=== PATIENT | male | born 1945 | race African-American/Black ===

== ENCOUNTER 2016-10-11 21:21 | Inpatient (IN) | payer MEDICARE, OTHER ==
[2016-10-11] MEDS ORDERED: ONDANSETRON 4 MG/2 ML VIAL IVP STA (23:38)
[2016-10-11] MEDS ORDERED: HYDROmorphone 1 MG/ML 1 ML SYRINGE IVP STA (23:38)
[2016-10-11] MEDS ORDERED: SODIUM CHLORIDE 0.9% 500 ML IV STA (23:38)
[2016-10-11] MEDS ORDERED: SODIUM CHLORIDE 0.9% 1,000 ML IV STA (23:38)
[2016-10-11] MEDS ORDERED: FAMOTIDINE 20 MG/2 ML VIAL IV STA (23:39)
--- NOTE | 2016-10-11 23:41 | ED ---
General Adult HPI - General Chief complaint: Abdominal Pain Stated complaint: abd pain Time Seen by Provider: 10/11/16 23:25 Source: patient, family, RN notes reviewed Mode of arrival: ambulatory Limitations: no limitations - History of Present Illness Initial comments: Patient is a pleasant 71-year-old male presenting to the emergency department complaining of abdominal discomfort. Patient has a known history of liver cancer. Liver lesion has shrunk as of last CAT scan, 1 month ago. Patient started having increased discomfort the past couple of days. Patient has associated nausea and vomiting. No fevers. No constipation or diarrhea. - Related Data Home Medications Medication Instructions Recorded Confirmed Albuterol Sulfate [Proair Hfa] 1 - 2 puff INHALATION RT-Q6H PRN 10/05/15 HYDROcodone/APAP 10-325MG [[place] 1 tab PO Q6H PRN 10/05/15 10/11/16 10-325] Mometasone Furoate [Nasonex Nasal 1 - 2 spray EA NOSTRIL DAILY 10/05/15 10/11/16 [place]] ALPRAZolam [Xanax] 2 mg PO TID PRN 09/17/16 10/11/16 Loratadine [Claritin] 10 mg PO DAILY 09/17/16 10/11/16 Omeprazole 40 mg PO DAILY 09/17/16 10/11/16 Allergies Allergy/AdvReac Type Severity Reaction Status Date / Time No Known Allergies Allergy Verified 10/11/16 22:57 Review of Systems ROS Statement: Those systems with pertinent positive or pertinent negative responses have been documented in the HPI. ROS Other: All systems not noted in ROS Statement are negative. Constitutional: Denies: fever Eyes: Denies: eye pain ENT: Denies: ear pain Respiratory: Denies: cough Cardiovascular: Denies: chest pain Endocrine: Reports: fatigue Gastrointestinal: Reports: abdominal pain, nausea, vomiting Genitourinary: Denies: dysuria Musculoskeletal: Denies: back pain Skin: Denies: rash Neurological: Denies: weakness Past Medical History Past Medical History: Asthma, Cancer, Prostate Disorder Additional Past Medical History / Comment(s): Prostate CA 2015, Hernia, liver mass, hepatitis C History of Any Multi-Drug Resistant Organisms: None Reported Past Surgical History: Hernia Repair Additional Past Surgical History / Comment(s): bilateral hernia repair, metal codi, pins and plate in left leg. Past Anesthesia/Blood Transfusion Reactions: No Reported Reaction Past Psychological History: Anxiety Smoking Status: Current some day smoker Past Alcohol Use History: Occasional Past Drug Use History: None Reported - Past Family History Father History Unknown: Yes General Exam Limitations: no limitations General appearance: alert, in no apparent distress Head exam: Present: atraumatic Eye exam: Present: normal appearance, PERRL ENT exam: Present: normal oropharynx Neck exam: Present: normal inspection Respiratory exam: Present: normal lung sounds bilaterally Cardiovascular Exam: Present: regular rate, normal rhythm GI/Abdominal exam: Present: soft, tenderness (Moderate tenderness right upper quadrant. Mild tenderness right lower quadrant.), normal bowel sounds, organomegaly (Mild hepatomegaly). Absent: distended, guarding, rebound, rigid, pulsatile mass Extremities exam: Present: normal inspection Neurological exam: Present: alert Psychiatric exam: Present: normal affect, normal mood Skin exam: Absent: rash Course Vital Signs 10/11/16 10/12/16 21:31 01:05 Temperature 98.4 F Pulse Rate 89 65 Respiratory 18 16 Rate Blood Pressure 108/62 125/71 O2 Sat by Pulse 98 95 Oximetry - Reevaluation(s) Reevaluation #1: 10/12/16 01:35 Patient reexamined and improved. Patient was updated on results and plan. Case was discussed in detail with Dr. Champion who recommends medicine admission with surgery consult. He will also consult. Dr. Sinha has been paged Medical Decision Making - Medical Decision Making Case was discussed with Dr. Sinha, who will admit for Dr. Tobar. - Lab Data Result diagrams: 10/11/16 23:20 10/11/16 23:20 Lab Results 10/11/16 10/11/16 10/11/16 Range/Units 23:20 23:20 23:20 WBC 6.6 (3.8-10.6) k/uL RBC 5.14 (4.30-5.90) m/uL Hgb 15.5 (13.0-17.5) gm/dL Hct 47.3 (39.0-53.0) % MCV 92.1 (80.0-100.0) fL MCH 30.2 (25.0-35.0) pg MCHC 32.8 (31.0-37.0) g/dL RDW 12.7 (11.5-15.5) % Plt Count 165 (150-450) k/uL Neutrophils % 83 % Lymphocytes % 6 % Monocytes % 7 % Eosinophils % 2 % Basophils % 2 % Neutrophils # 5.5 (1.3-7.7) k/uL Lymphocytes # 0.4 L (1.0-4.8) k/uL Monocytes # 0.4 (0-1.0) k/uL Eosinophils # 0.1 (0-0.7) k/uL Basophils # 0.1 (0-0.2) k/uL PT 11.2 (9.0-12.0) sec INR 1.1 (<1.1) APTT 26.0 (22.0-30.0) sec Sodium 141 (137-145) mmol/L Potassium 3.6 (3.5-5.1) mmol/L Chloride 95 L (98-107) mmol/L Carbon Dioxide 34 H (22-30) mmol/L Anion Gap 12 mmol/L BUN 14 (9-20) mg/dL Creatinine 1.00 (0.66-1.25) mg/dL Est GFR (MDRD) Af Amer >60 (>60 ml/min/1.73 sqM) Est GFR (MDRD) Non-Af >60 (>60 ml/min/1.73 sqM) Glucose 116 H (74-99) mg/dL Calcium 9.9 (8.4-10.2) mg/dL Total Bilirubin 0.8 (0.2-1.3) mg/dL AST 45 (17-59) U/L ALT 59 (21-72) U/L Alkaline Phosphatase 132 H (38-126) U/L Total Protein 7.6 (6.3-8.2) g/dL Albumin 4.2 (3.5-5.0) g/dL Amylase 51 (30-110) U/L Lipase 58 (23-300) U/L - Radiology Data Radiology results: report reviewed (Ultrasounds shows sludge in the gallbladder , thickened wall, periCholecystic fluid.) Disposition Clinical Impression: Acute cholecystitis Disposition: ADMITTED IP TO THIS HOSP
[2016-10-12 00:05] LABS: Basophils # (A) 0.1 k/uL (0-0.2); Basophils % (A) 2 %; CH 31.3; CHCM 34.1; Eosinophils # (A) 0.1 k/uL (0-0.7); Eosinophils % (A) 2 %; HCT 47.3 % (39.0-53.0); HGB 15.5 gm/dL (13.0-17.5); Luc # (Auto) 0.06; Luc % (Auto) 1; Lymphocytes # (A) 0.4 k/uL (1.0-4.8); Lymphocytes % (A) 6 %; MCH 30.2 pg (25.0-35.0); MCHC 32.8 g/dL (31.0-37.0); MCV 92.1 fL (80.0-100.0); Mean Platelet Volume 9.6; Monocytes # (A) 0.4 k/uL (0-1.0); Monocytes % (A) 7 %; Neutrophils # (A) 5.5 k/uL (1.3-7.7); Neutrophils % (A) 83 %; RBC 5.14 m/uL (4.30-5.90); RDW 12.7 % (11.5-15.5); WBC 6.6 k/uL (3.8-10.6); WBC (Perox) 6.38
[2016-10-12 00:14] LABS: INR 1.1 (<1.1); Prothrombin Time 11.2 sec (9.0-12.0)
[2016-10-12 00:17] LABS: ALT 59 U/L (21-72); AST 45 U/L (17-59); Alkaline Phosphatase 132 U/L (38-126); Amylase 51 U/L (30-110); Anion Gap 12 mmol/L; Blood Urea Nitrogen 14 mg/dL (9-20); Calcium 9.9 mg/dL (8.4-10.2); Carbon Dioxide 34 mmol/L (22-30); Chloride 95 mmol/L (98-107); Glucose 116 mg/dL (74-99); Non-African American GFR(MDRD) >60 (>60 ml/min/1.73 sqM); Potassium 3.6 mmol/L (3.5-5.1); Sodium 141 mmol/L (137-145); Total Bilirubin 0.8 mg/dL (0.2-1.3); Total Protein 7.6 g/dL (6.3-8.2)
--- NOTE | 2016-10-12 01:03 | US ---
EXAMINATION TYPE: US gallbladder DATE OF EXAM: 10/12/2016 12:45 AM COMPARISON: on PACS CLINICAL HISTORY: increase abdominal gas post eating, had prostate cancer, hx of liver lesions. EXAM MEASUREMENTS: Liver Length: 15.6 cm Gallbladder Wall: 0.4 cm CBD: 0.3 cm Right Kidney: 10.6 x 5.3 x 5.7 cm TECHNOLOGIST IMPRESSION: Pancreas: Obscured by bowel gas Liver: enlarged caudate lobe. heterogenous. Liver lesions. 1- left lobe, cluster of cysts= 1.5 x 1. 6 x 1.8 cm. 2- right lobe, posterior, cystic lesion= 2.4 x 2.3 x 1.9 cm Gallbladder: sludge, thickened wall. Calcifications seen attached to wall. Small amount of periflu id. Evidence for sonographic Terrazas's sign: neg CHD: wnl Right Kidney: wnl IMPRESSION: Gallbladder is enlarged with thickened wall consistent with cholecystitis. There are a fe w adherent gallstones. No dilated ducts. Dilated gallbladder appears new compared to CT scan of 09/17. There are hepatic cysts noted in the left lobe. Normal Values: Liver Length: < 16cm wnl, 17-18cm upper limits, >18cm enlarged Renal Length = 9 - 12cm GB Wall: < 0.3cm CBD: < 0.6cm or < 1.0cm post cholecystectomy
--- NOTE | 2016-10-12 01:05 | XR ---
EXAMINATION TYPE: XR KUB DATE OF EXAM: 10/12/2016 12:54 AM COMPARISON: 09/17/2016 HISTORY: Abdominal pain TECHNIQUE: 2 views FINDINGS: There is no sign of intestinal obstruction or pneumoperitoneum. Fecal pattern is normal. Caitlin ng bases are clear of consolidation. There are no pathologic calcifications over the kidneys. IMPRESSION: Nonacute abdomen. No change.
[2016-10-12] MEDS ORDERED: AMPICILLIN-SULBACTAM 3 GM in SODIUM CHLORIDE 0.9% 100 ML IVPB STA (01:32)
[2016-10-12] MEDS ORDERED: NALOXONE 0.4 MG/ML 1 ML VIAL IV PRN (01:33)
[2016-10-12] MEDS ORDERED: ONDANSETRON 4 MG/2 ML VIAL IVP PRN (01:33)
[2016-10-12] MEDS: SODIUM CHLORIDE 0.9% 1,000 ML IV SCH ×3 (02:42→20:09)
[2016-10-12 03:23] LABS: Amorphous Sediment,Urine Rare /hpf; Appearance,Urine Cloudy (Clear); Bacteria,Urine Occasional /hpf; Bilirubin,Urine Negative (Negative); Glucose,Urine (UA) Negative (Negative); Ketones,Urine Trace (Negative); Leukocyte Esterase,Urine Negative (Negative); Mucus,Urine Rare /hpf; Nitrite,Urine Negative (Negative); PH, Urine 8.5 (5.0-8.0); Particle Count 7699; Protein,Urine Trace (Negative); RBC,Urine 2 /hpf (0-5); Specific Gravity,Urine 1.014 (1.001-1.035); UA Billing (MACRO vs. MICRO) MICRO; Urobilinogen,Urine <2.0 mg/dL (<2.0)
[2016-10-12] MEDS: HYDROmorphone 1 MG/ML 1 ML SYRINGE IV PRN ×3 (06:54→23:31)
[2016-10-12] MEDS: PANTOPRAZOLE 40 MG/10 ML VIAL IV SCH (08:34)
[2016-10-12] MEDS: AMPICILLIN-SULBACTAM 1.5 GM in SODIUM CHLORIDE 0.9% 50 ML IVPB SCH ×4 (08:34→23:29)
[2016-10-12] MEDS ORDERED: ALPRAZolam 0.5 MG TAB PO PRN (11:20)
[2016-10-12] MEDS ORDERED: ALBUTEROL NEBULIZED 2.5 MG/3 ML INHALATION PRN (11:30)
--- NOTE | 2016-10-12 12:37 | P.CONS ---
History of Present Illness - Reason for Consult Consult date: 10/12/16 Oncology care Requesting physician: Víctor Duffy - Chief Complaint abdominal pain - History of Present Illness Mr. Garcia is a very pleasant patient who was initially seen by Dr. Champion in Oct 2015. Pt presented with mild RUQ abdominal discomfort and had a CT scan of abdomen on 08/20/2015 which revealed 12.2 x 8.9 cm liver mass with normal LFTs, other then a slightly elevated alkaline phosphatase, hepatitis C antibodies were positive, AFP was 72745. MRI on 09/22/2015 revealed hetergeneous 12 cm mass centrally within the liver. He had a liver biopsy on 10/14/2015 which was positive for hepatocellular carcinoma. He was seen by Dr. Rosales and felt not to be a surgical candidate but intra-arterial therapy was recommended. On 10/28/2015 he had MAA administration to right hepatic artery. He was then seen at [facility] in November 2015 for a second opinion, recommendation was to start nexavar. He had another MAA administration in 2015 He started the nexavar on 12/08/2015 but this was discontinued on 12/18/2015 because of severe plantar/palmar erythrodesia. On 01/04/2016 AFP was 1193 and repeat liver MRI on 01/27/2016 revealed decrease in the size of liver mass. Serial AFP were: 02/02/2016-632.4, 03/08/2016-356.6. We attempted to resume nexavar on 03/07/2016 at reduced dose of 200mg BID after his symptoms resolved but skin toxicities rapidly recurred, this was permanently discontinued on . Serial AFP since: 04/11/2016-307.3, 04/29/16-127, 08/11/16-203. 2015 MRI showed improvement in his liver lesion. 08/11/2016 MRI revealed cirrhotic liver, stable central lesion, satellite lesion slightly larger. He was evaluated at [place] and it was decided to watch for now and repeat MRI in November 2016. Pt has had progressive GI distress over the last month including early satiety, some vomiting, RUQ and right side discomfort with increase gas and abd bloating after eating as well as severe constipation. He denied fever, dysphagia, black , bloody, mucoid or changes in color of stool, jaundice, itching or swelling. Review of Systems All systems: negative Constitutional: Reports as per HPI Past Medical History Past Medical History: Asthma, Cancer, Prostate Disorder Additional Past Medical History / Comment(s): Prostate CA 2015, Hernia, hepatitis C, HCC History of Any Multi-Drug Resistant Organisms: None Reported Past Surgical History: Hernia Repair Additional Past Surgical History / Comment(s): bilateral hernia repair, metal codi, pins and plate in left leg. Chemo-embolization of the liver x 2 Past Anesthesia/Blood Transfusion Reactions: No Reported Reaction Past Psychological History: Anxiety Smoking Status: Current some day smoker Past Alcohol Use History: Occasional Past Drug Use History: None Reported - Past Family History Father History Unknown: Yes Medications and Allergies Home Medications Medication Instructions Recorded Confirmed Type Albuterol Sulfate [Proair Hfa] 1 - 2 puff INHALATION RT-Q6H PRN 10/05/15 History HYDROcodone/APAP 10-325MG [[place] 1 tab PO Q6H PRN 10/05/15 10/11/16 History 10-325] Mometasone Furoate [Nasonex Nasal 1 - 2 spray EA NOSTRIL DAILY 10/05/15 History [place]] ALPRAZolam [Xanax] 2 mg PO TID PRN 09/17/16 10/11/16 History Loratadine [Claritin] 10 mg PO DAILY 09/17/16 10/11/16 History Omeprazole 40 mg PO DAILY 09/17/16 10/11/16 History Allergies Allergy/AdvReac Type Severity Reaction Status Date / Time No Known Allergies Allergy Verified 10/11/16 22:57 Physical Exam Vitals: Vital Signs Temp Pulse Pulse Pulse Resp BP BP 10/12/16 11:18 97.3 F L 58 L 14 102/69 10/12/16 08:00 63 16 10/12/16 07:00 97.3 F L 58 L 14 102/69 10/12/16 02:33 98.6 F 63 16 10/12/16 02:20 74 16 121/73 Pulse Ox 10/12/16 11:18 95 10/12/16 08:00 10/12/16 07:00 95 10/12/16 02:33 95 10/12/16 02:20 95 Intake and Output 10/11/16 10/12/16 10/12/16 22:59 06:59 14:59 Output Total 200 Balance -200 Output: Urine 200 Other: Voiding Method Toilet Toilet - Constitutional General appearance: average body habitus, no acute distress - EENT Eyes: anicteric sclerae, normal appearance ENT: hearing grossly normal, normal oropharynx - Neck Neck: no lymphadenopathy - Respiratory Respiratory: bilateral: CTA - Cardiovascular Rhythm: regular Heart sounds: normal: S1, S2 leg Peripheral Edema: bilateral: None - Gastrointestinal General gastrointestinal: soft, ventral hernia Localized gastrointestinal: tender: RUQ (mild), rebound: RUQ, LUQ, RLQ, LLQ, epigastric periumbilical, suprabubic, midline - Integumentary Integumentary: normal - Neurologic Neurologic: CNII-XII intact, focal deficits - Musculoskeletal Musculoskeletal: strength equal bilaterally - Psychiatric Psychiatric: A&O x's 3, appropriate affect, intact judgment & insight Results CBC & Chem 7: 10/11/16 23:20 10/11/16 23:20 Labs: Abnormal Lab Results - Last 24 Hours (Table) 10/12/16 Range/Units 03:00 Urine pH 8.5 H (5.0-8.0) Urine Protein Trace H (Negative) Urine Ketones Trace H (Negative) Amorphous Sediment Rare H (None) /hpf Urine Bacteria Occasional H (None) /hpf Urine Mucus Rare H (None) /hpf Abdominal x-ray: report reviewed US - abdomen: report reviewed Assessment and Plan (1) Hepatocellular carcinoma Narrative/Plan: Pt is not currently on any active treatment, his last scan in Aug showed stable disease, he is due for imaging again in November. Pt is ok from an Oncology standpoint to have surgical procedures if necessary. No labs at this time. Status: Chronic (2) History of prostate cancer Narrative/Plan: Remote history. No further work up at this time. Status: Chronic
--- NOTE | 2016-10-12 13:26 | P.GSCN ---
History of Present Illness Consult date: 10/12/16 Reason for Consult: Cholecystitis History of present illness: Patient was hospitalized because of abdominal pain. The abdominal pain is in the right upper abdomen as well as the infraumbilical location. It is gassy at times. Appetite slightly diminished. No nausea or vomiting. Some constipation at times. Some radiation to his back. Denies fevers or chills. He has a complex history of hepatitis C and hepatocellular cancer. He has undergone transhepatic therapy for his malignancy with good results thus far. He had a CAT scan about a month ago. An ultrasound was done when he came in with the above complaints. The ultrasound shows a thickened gallbladder wall with gallstones. He was tender to the physicians that were evaluating him in the right upper abdomen. Coags are normal. Alkaline phosphatase slightly elevated although the remainder of his labs are normal. Platelets are normal. Review of Systems The patient denies any acute changes in his vision or hearing, no dysphagia or odynophagia, no chest pain or shortness of breath, no dysuria or hematuria, no headache, no runny nose, no rectal bleeding or melena, no unexplained weight loss All systems: negative Past Medical History Past Medical History: Asthma, Cancer, Prostate Disorder Additional Past Medical History / Comment(s): Prostate CA 2015, Hernia, hepatitis C, HCC History of Any Multi-Drug Resistant Organisms: None Reported Past Surgical History: Hernia Repair Additional Past Surgical History / Comment(s): bilateral hernia repair, metal codi, pins and plate in left leg. Chemo-embolization of the liver x 2 Past Anesthesia/Blood Transfusion Reactions: No Reported Reaction Past Psychological History: Anxiety Smoking Status: Current some day smoker Past Alcohol Use History: Occasional Past Drug Use History: None Reported - Past Family History Father History Unknown: Yes Medications and Allergies Home Medications Medication Instructions Recorded Confirmed Type Albuterol Sulfate [Proair Hfa] 1 - 2 puff INHALATION RT-Q6H PRN 10/05/15 History HYDROcodone/APAP 10-325MG [[place] 1 tab PO Q6H PRN 10/05/15 10/11/16 History 10-325] Mometasone Furoate [Nasonex Nasal 1 - 2 spray EA NOSTRIL DAILY 10/05/15 History [place]] ALPRAZolam [Xanax] 2 mg PO TID PRN 09/17/16 10/11/16 History Loratadine [Claritin] 10 mg PO DAILY 09/17/16 10/11/16 History Omeprazole 40 mg PO DAILY 09/17/16 10/11/16 History Allergies Allergy/AdvReac Type Severity Reaction Status Date / Time No Known Allergies Allergy Verified 10/11/16 22:57 Surgical - Exam Vital Signs Temp Pulse Resp BP Pulse Ox 98.4 F 89 18 108/62 98 10/11/16 21:31 10/11/16 21:31 10/11/16 21:31 10/11/16 21:31 10/11/16 21:31 Physical exam: General: Well-developed, well-nourished HEENT: Normocephalic, sclerae nonicteric Abdomen: Right upper quadrant tenderness, no palpable mass, nondistended Extremities: No edema Neuro: Alert and oriented Results - Labs 10/11/16 23:20 10/11/16 23:20 Abnormal Lab Results - Last 24 Hours (Table) 10/12/16 Range/Units 03:00 Urine pH 8.5 H (5.0-8.0) Urine Protein Trace H (Negative) Urine Ketones Trace H (Negative) Amorphous Sediment Rare H (None) /hpf Urine Bacteria Occasional H (None) /hpf Urine Mucus Rare H (None) /hpf Assessment and Plan (1) Acute cholecystitis Narrative/Plan: The patient's exam and ultrasound findings suggest the presence of acute cholecystitis. The patient I discussed the options in detail. Included in those options are outpatient evaluation by his hepatic team at [facility]. The patient and I have chosen to proceed with laparoscopic cholecystectomy at this time. The additional risks as it pertains to his prior history was discussed in detail. The risks to the patient include bleeding, infection, biliary leakage, bile duct injury, retained common bile duct stone, conversion to an open procedure, postoperative diarrhea, persistent abdominal pain in the postoperative setting. The patient understands and wishes to proceed. Status: Acute
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
[2016-10-12] MEDS ORDERED: IV FLUID CONTINUATION 1,000 ML IV ONE (15:24)
[2016-10-12] MEDS ORDERED: ONDANSETRON 4 MG/2 ML VIAL IVP ONE (15:50)
[2016-10-12] MEDS ORDERED: DEXAMETHASONE SOD PHOSPHATE 10 MG/ML 1 ML VIAL IV ONE (15:51)
[2016-10-12] MEDS ORDERED: GLYCOPYRROLATE 0.2 MG/ML 2 ML VIAL ONE (15:59)
[2016-10-12] MEDS ORDERED: ROCURONIUM BROMIDE 10 MG/ML 10 ML VIAL IV ONE (15:59)
[2016-10-12] MEDS ORDERED: MIDAZOLAM 2 MG/2 ML VIAL ONE (15:59)
[2016-10-12] MEDS ORDERED: LIDOCAINE 1% INJ 10MG/ML (20 ML MDV) ONE (15:59)
[2016-10-12] MEDS ORDERED: HEPARIN SODIUM,PORCINE 5,000 UNIT/ML 1 ML VIAL ONE (15:59)
[2016-10-12] MEDS ORDERED: SUCCINYLCHOLINE CHLORIDE 100 MG/5 ML SYR IV ONE (15:59)
[2016-10-12] MEDS ORDERED: PHENYLEPHRINE-0.9% NACL SYG 1 MG/10 ML SYRINGE ONE (15:59)
[2016-10-12] MEDS ORDERED: PROPOFOL 10 MG/ML 20 ML VIAL IV ONE (15:59)
[2016-10-12] MEDS ORDERED: NEOSTIGMINE 1 MG/ML 10 ML VIAL ONE (15:59)
[2016-10-12] MEDS ORDERED: fentaNYL (PF) 50 MCG/ML 2 ML AMP ONE (15:59)
[2016-10-12] MEDS ORDERED: BUPIVACAIN-EPI 0.25%-1:200,000 30 ML VIAL SQ ONE (16:28)
[2016-10-12] MEDS ORDERED: LACTATED RINGERS 1,000 ML IV ONE (17:45)
[2016-10-12] MEDS ORDERED: MEPERIDINE 50 MG/ML SYRINGE IVP ONE (18:17)
--- NOTE | 2016-10-12 18:49 | P.PCN ---
Date of Procedure: 10/12/16 Procedure(s) Performed: PREOPERATIVE DIAGNOSIS: Acute cholecystitis POSTOPERATIVE DIAGNOSIS: Same PROCEDURE: Laparoscopic cholecystectomy SURGEON: Ernesto EBL: Minimal see anesthesia record ANESTHESIA: Gen. COMPLICATIONS: None OPERATIVE PROCEDURE: The patient was brought and placed on the operating room table in the supine position. The patient was placed under general anesthesia at that time. The abdomen was prepped and draped in the usual sterile fashion. A small vertical infraumbilical incision was made. The fascia was grasped with the Yamini forceps. The fascia was retracted anteriorly. The Veress needle was advanced into the peritoneal cavity. The saline drop test was normal. Insufflation took place up to 15 mmHg. A 5 mm optical trocar was advanced and the peritoneal cavity. 2 additional 5 mm trochars were placed in the right upper quadrant under direct visualization. A 10 mm trocar was advanced into the epigastric incision site. This was later switched to a 12 mm trocar. The patient's liver was inspected and had a macronodular appearance. This was quite diseased appearing. The gallbladder was distended and had omental fat that was adherent to this. The intra-abdominal fat was also adherent to the liver margin. Using the Harmonic scalpel I dissected some of this fatty tissue away from the gallbladder. A small opening was made in the fundus and bilious fluid was evacuated. Dissection of the gallbladder then took place bluntly. As I approached the infundibulum the patient had a prominent sweep of the hepatic artery. This was extremely inflamed in this region possibly on the basis of recent transhepatic chemotherapy. I was able to finally bluntly dissect away the hepatic artery from the infundibulum. The cystic artery was identified. This was divided using a clipper. I then bluntly dissected further on the infundibulum until this narrowed down. The degree of inflammation however remained quite impressive. I decided to ligate the distal infundibulum using a 2-0 Ethibond stitch and avoid any further dissection into the avel hepatis. The 2 Ethibond stitch was tied down using the time of device. An additional 12 mm clip was placed on the patient's side. The infundibulum was then divided using scissors. The lumen of the infundibulum that location was extremely small and inflamed. I then dissected the infundibulum away from the liver using a combination of electrocautery and the Harmonic scalpel. Small vessels were ligated using the clipper. The gallbladder was removed from the epigastric trocar site with an Endo Catch bag. I placed a drain in the gallbladder fossa exiting through the most lateral 5 mm trocar site. This was sutured in place using a 3-0 silk stitch. The gallbladder fossa was irrigated with saline. There was no evidence of any bleeding or biliary drainage seen. The trochars were then removed. The fascia at the 12 millimeter site was closed using a [id number] 0 Vicryl stitch. The skin at all 3 sites was closed using a 4-0 Monocryl stitch. At the end of this procedure the sponge and needle counts were correct. DISPOSITION: Stable to the recovery room
[2016-10-13] MEDS: HYDROmorphone 1 MG/ML 1 ML SYRINGE IV PRN ×3 (03:35→21:20)
[2016-10-13] MEDS: SODIUM CHLORIDE 0.9% 1,000 ML IV SCH ×3 (05:23→21:17)
[2016-10-13] MEDS: AMPICILLIN-SULBACTAM 1.5 GM in SODIUM CHLORIDE 0.9% 50 ML IVPB SCH ×4 (05:24→23:29)
[2016-10-13 07:18] LABS: Basophils % (A) 0 %; CH 30.9; CHCM 32.6; Eosinophils # (A) 0.1 k/uL (0-0.7); Eosinophils % (A) 1 %; HCT 49.9 % (39.0-53.0); HDW 2.29; Luc # (Auto) 0.13; Luc % (Auto) 2; Lymphocytes # (A) 0.5 k/uL (1.0-4.8); Lymphocytes % (A) 8 %; MCH 30.5 pg (25.0-35.0); MCV 95.1 fL (80.0-100.0); Mean Platelet Volume 8.7; Monocytes # (A) 0.3 k/uL (0-1.0); Monocytes % (A) 5 %; Neutrophils # (A) 5.5 k/uL (1.3-7.7); Neutrophils % (A) 84 %; RBC 5.25 m/uL (4.30-5.90); RDW 12.5 % (11.5-15.5); WBC 6.5 k/uL (3.8-10.6); WBC (Perox) 6.73
[2016-10-13 07:46] LABS: ALT 54 U/L (21-72); AST 45 U/L (17-59); Alkaline Phosphatase 98 U/L (38-126); Anion Gap 10 mmol/L; Blood Urea Nitrogen 8 mg/dL (9-20); Calcium 9.4 mg/dL (8.4-10.2); Carbon Dioxide 30 mmol/L (22-30); Chloride 102 mmol/L (98-107); Glucose 101 mg/dL (74-99); Non-African American GFR(MDRD) >60 (>60 ml/min/1.73 sqM); Potassium 4.8 mmol/L (3.5-5.1); Sodium 142 mmol/L (137-145); Total Bilirubin 0.8 mg/dL (0.2-1.3); Total Protein 6.8 g/dL (6.3-8.2)
[2016-10-13] MEDS: PANTOPRAZOLE 40 MG/10 ML VIAL IV SCH (08:10)
[2016-10-13] MEDS: FLUTICASONE 50MCG/SPRAY NASAL 16GM EA NOSTRIL SCH (08:10)
[2016-10-13] MEDS: HYDROcodone/APAP 10-325MG 1 EACH TAB PO PRN ×2 (13:21→18:23)
--- NOTE | 2016-10-13 16:22 | P.PN ---
Subjective This is a 71-year-old patient of Dr. Tobar with a past medical history of prostate cancer many years ago, liver cancer under the care of Dr. Mendez diagnosed in 2014, cirrhosis of the liver, hepatitis C. Patient has had complaints of abdominal pain for greater than one month. He has had heartburn with bloating especially when he eats with a couple episodes of vomiting. He states he did come into the hospital one month ago for these complaints and was diagnosed with ileus and was discharged home. He underwent a CAT scan of the abdomen and pelvis with contrast at that time which revealed large multifocal lesion within the liver undoubtably representing latency. Mildly dilated gas- filled large and small bowel throughout the abdomen likely reflex generalized ileus. Degenerative changes within the spine. He returned to the emergency center on October 11 with the same complaints. Ultrasound of the abdomen showed gallbladder enlarged with thickened wall consistent with cholecystitis. There are a few adherent gallstones. No dilated ducts. Dilated gallbladder appears new compared to CAT scan of September 17. Alkaline phosphatase 132. KUB of the abdomen showed non-acute abdomen. Patient was admitted to the surgical unit with diagnosis of acute cholecystitis. Consults requested with Dr. Orozco and Dr. Bejarano. 10/13: Patient is status post laparoscopic cholecystectomy done on October [address] Orozco. Patient is complaining of pain not controlled and would like to stay until the morning. Patient will be discharged tomorrow in the morning. Objective - Vital Signs Vital signs: Vital Signs Temp 97.0 F L 10/13/16 01:24 Pulse 59 L 10/13/16 01:24 Resp 16 10/13/16 01:24 BP 115/76 10/13/16 01:24 Pulse Ox 95 10/13/16 01:24 Intake & Output 10/12/16 10/13/16 10/13/16 18:59 06:59 18:59 Intake Total 1870 600 Output Total 5 80 Balance 1865 -80 600 Intake: IV 1100 Intake, IV Titration 770 Amount Sodium Chloride 0.9% 1, 770 000 ml @ 110 mls/hr IV . Q9H6M [facility] Rx#:[id number] Oral 600 Output: Drainage 80 Right Lower Abdomen 80 Estimated Blood Loss 5 Other: Voiding Method Toilet Toilet # Voids 1 - Exam Gen: This is a 8-year-old -[place] gentleman. He appears to be in no acute distress. HEENT: Head is atraumatic, normocephalic. Pupils equal, round. Sclerae is anicteric. NECK: Supple. No JVD. No lymphadenopathy. No thyromegaly. LUNGS: Clear to auscultation. No wheezes or rhonchi. No intercostal retractions. HEART: Regular rate and rhythm. No murmur. ABDOMEN: Soft. Bowel sounds are present. No masses. Mild right upper quadrant tenderness. Midline ventral hernia noted. EXTREMITIES: No pedal edema. No calf tenderness. NEUROLOGICAL: Patient is awake, alert and oriented x3. Cranial nerves 2 through 12 are grossly intact. - Labs CBC & Chem 7: 10/13/16 06:50 10/13/16 06:50 Labs: Abnormal Lab Results - Last 24 Hours (Table) 10/13/16 10/13/16 Range/Units 06:50 06:50 Lymphocytes # 0.5 L (1.0-4.8) k/uL BUN 8 L (9-20) mg/dL Glucose 101 H (74-99) mg/dL Assessment and Plan Plan: 1. Acute cholecystitis. Status post laparoscopic cholecystectomy with Dr. Orozco. Continue Unasyn, current pain management 2. Hepatocellular carcinoma followed by oncology. Consult with oncology appreciated. 3. History of prostate cancer in the remote past, stable. 4. History of hepatitis C and cirrhosis of the liver, stable. 5. Gastrointestinal prophylaxis. Continue Protonix. 6. DVT prophylaxis. Continue MEJIA hose and SCDs. 7. Generalized anxiety disorder. Continue Xanax 2 mg 3 times daily as needed. 8. Probable COPD. Continue albuterol inhaler every 6 hours as needed. Patient will be admitted to the hospital for a minimum of 2 night stay. Discharge plan: Return home Impression and plan of care have been directed as dictated by the signing physician. Jeannie Aguirre nurse practitioner acting as scribe for signing physician. Time with Patient: Greater than 30
--- NOTE | 2016-10-13 18:39 | P.PN ---
Subjective Principal diagnosis: Cholecystitis Patient feels better today. Mild discomfort. The pain that he was having preoperatively is definitely improved. RIGOBERTO drain sterile saline was. Today's labs appear normal. Objective - Vital Signs Vital signs: Vital Signs Temp 97 F L 10/13/16 13:46 Pulse 53 L 10/13/16 15:37 Resp 16 10/13/16 15:37 BP 129/78 10/13/16 13:46 Pulse Ox 96 10/13/16 13:46 Intake & Output 10/12/16 10/13/16 10/13/16 18:59 06:59 18:59 Intake Total 1870 2440 Output Total 5 80 30 Balance 1865 -80 2410 Intake: IV 1100 Intake, IV Titration 770 880 Amount Sodium Chloride 0.9% 1, 770 880 000 ml @ 110 mls/hr IV . Q9H6M [facility] Rx#:[id number] Oral 1560 Output: Drainage 80 30 Right Lower Abdomen 80 30 Estimated Blood Loss 5 Other: Voiding Method Toilet Toilet Toilet # Voids 1 - Exam Abdomen: Soft, nondistended, mild tenderness, RIGOBERTO drain serosanguineous - Labs CBC & Chem 7: 10/13/16 06:50 10/13/16 06:50 Labs: Abnormal Lab Results - Last 24 Hours (Table) 10/13/16 10/13/16 Range/Units 06:50 06:50 Lymphocytes # 0.5 L (1.0-4.8) k/uL BUN 8 L (9-20) mg/dL Glucose 101 H (74-99) mg/dL Assessment and Plan (1) Acute cholecystitis Narrative/Plan: Increase activity. Possible discharge tomorrow with drain removal. Status: Acute
[2016-10-14] MEDS: HYDROmorphone 1 MG/ML 1 ML SYRINGE IV PRN (01:33)
[2016-10-14] MEDS: AMPICILLIN-SULBACTAM 1.5 GM in SODIUM CHLORIDE 0.9% 50 ML IVPB SCH ×3 (04:59→13:13)
[2016-10-14] MEDS: SODIUM CHLORIDE 0.9% 1,000 ML IV SCH (04:59)
[2016-10-14] MEDS: HYDROcodone/APAP 10-325MG 1 EACH TAB PO PRN ×2 (08:08→13:45)
[2016-10-14] MEDS: PANTOPRAZOLE 40 MG/10 ML VIAL IV SCH (08:08)
[2016-10-14] MEDS: FLUTICASONE 50MCG/SPRAY NASAL 16GM EA NOSTRIL SCH (08:11)
[2016-10-14 08:12] VITALS: BP 99/38; PULSE 52; RESP 16; TEMP 97
--- NOTE | 2016-10-14 14:01 | P.PN ---
Subjective Principal diagnosis: Postop cholecystectomy for acute cholecystitis The patient is doing fairly well. No nausea or vomiting. Tolerating a diet. Mild incisional pain. The RIGOBERTO had about 190 out yesterday. Objective - Vital Signs Vital signs: Vital Signs Temp 97 F L 10/14/16 08:11 Pulse 52 L 10/14/16 08:11 Resp 16 10/14/16 08:11 BP 99/38 10/14/16 08:11 Pulse Ox 93 L 10/14/16 08:11 Intake & Output 10/13/16 10/14/16 10/14/16 18:59 06:59 18:59 Intake Total 2440 180 Output Total 30 160 20 Balance 2410 -160 160 Intake: Intake, IV Titration 880 Amount Sodium Chloride 0.9% 1, 880 000 ml @ 110 mls/hr IV . Q9H6M [facility] Rx#:[id number] Oral 1560 180 Output: Drainage 30 160 20 Right Lower Abdomen 30 160 20 Other: Voiding Method Toilet Toilet # Voids 1 - Constitutional General appearance: Present: cooperative, no acute distress - Respiratory Respiratory: bilateral: CTA - Gastrointestinal General gastrointestinal: Present: decreased bowel sounds, soft Localized gastrointestinal: surgical scar: diffuse (Dressings intact. There is some serous drainage around the RIGOBERTO drain. The RIGOBERTO is serosanguineous) - Labs CBC & Chem 7: 10/13/16 06:50 10/13/16 06:50 Assessment and Plan (1) Acute cholecystitis Status: Acute (2) Hepatocellular carcinoma Status: Chronic Plan: Surgically stable for discharge. He been on oral antibiotics prior to admission he can finish those off. Follow-up with Dr. Peterson in the office next week for drain removal.
--- NOTE | 2016-10-20 15:52 | P.DS ---
Providers Date of admission: 10/12/16 01:33 Expected date of discharge: 10/14/16 Attending physician: Shanna Sinha Consults: 10/12/16 11:02 Consult Physician Routine Consulting Provider: Nino Orozco Consult Reason/Comments: ACUTE CHOLECYSTITIS Do you want consulting provider notified?: Yes Primary care physician: Jose Maria Tobar [facility] Course: This is a 71-year-old patient of Dr. Tobar with a past medical history of prostate cancer many years ago, liver cancer under the care of Dr. Mendez diagnosed in 2014, cirrhosis of the liver, hepatitis C. Patient has had complaints of abdominal pain for greater than one month. He has had heartburn with bloating especially when he eats with a couple episodes of vomiting. He states he did come into the hospital one month ago for these complaints and was diagnosed with ileus and was discharged home. He underwent a CAT scan of the abdomen and pelvis with contrast at that time which revealed large multifocal lesion within the liver undoubtably representing latency. Mildly dilated gas- filled large and small bowel throughout the abdomen likely reflex generalized ileus. Degenerative changes within the spine. He returned to the emergency center on October 11 with the same complaints. Ultrasound of the abdomen showed gallbladder enlarged with thickened wall consistent with cholecystitis. There are a few adherent gallstones. No dilated ducts. Dilated gallbladder appears new compared to CAT scan of September 17. Alkaline phosphatase 132. KUB of the abdomen showed non-acute abdomen. Patient was admitted to the surgical unit with diagnosis of acute cholecystitis. Consults requested with Dr. Orozco and Dr. Bejarano. 10/13: Patient is status post laparoscopic cholecystectomy done on October [address] Orozco. Patient is complaining of pain not controlled and would like to stay until the morning. Patient will be discharged tomorrow in the morning. Discharge diagnoses: 1. Acute cholecystitis. Status post laparoscopic cholecystectomy with Dr. Orozco. 2. Hepatocellular carcinoma followed by oncology. 3. History of prostate cancer in the remote past, stable. 4. History of hepatitis C and cirrhosis of the liver, stable. 5. Generalized anxiety disorder. 6. Probable COPD. Impression and plan of care have been directed as dictated by the signing physician. Jeannie Aguirre nurse practitioner acting as scribe for signing physician. Cc Dr. Jose Maria Tobar Patient Condition at Discharge: Good Plan - Discharge Summary New Discharge Prescriptions: HYDROcodone/APAP 10-325MG [[place] 10-325] 1 tab PO Q6H PRN #30 tab PRN Reason: Pain Discharge Medication List Albuterol Sulfate [Proair Hfa] 1 - 2 puff INHALATION RT-Q6H PRN 10/05/15 [ History] Mometasone Furoate [Nasonex Nasal [place]] 1 - 2 spray EA NOSTRIL DAILY 10/05/15 [ History] ALPRAZolam [Xanax] 2 mg PO TID PRN 09/17/16 [History] Loratadine [Claritin] 10 mg PO DAILY 09/17/16 [History] Omeprazole 40 mg PO DAILY 09/17/16 [History] HYDROcodone/APAP 10-325MG [[place] 10-325] 1 tab PO Q6H PRN #30 tab 10/13/16 [Rx] Follow up Appointment(s)/Referral(s): Nino Orozco MD [Medical Doctor] - 10/25/16 3:15 pm Jose Maria Tobar DO [Primary Care Provider] - 1 Week (Office was closed. Please make appt during regular buisness hours. ) Patient Instructions/Handouts: *Surgery [facility] - Laparoscopic Cholecystectomy Discharge Instructions, [place] Drain Care (DC), Laparoscopic Cholecystectomy (DC) Discharge Disposition: HOME SELF-CARE
== END 2016-10-14 14:01 | disposition home or self-care (01) | DRG 418 ==
LOC: EC 21:21 → 3SUR 10-12 01:33
PROVIDERS: ADMIT Internal Medicine; ATTEND Internal Medicine
PROC: 0FT44ZZ Resection of Gallbladder, Percutaneous Endoscopic Approach (ICD-10-PCS; principal; 2016-10-12 07:30)
DX: K80.00 Calculus of gallbladder with acute cholecystitis without obstruction (principal); C22.0 Liver cell carcinoma; J44.9 Chronic obstructive pulmonary disease, unspecified; K74.60 Unspecified cirrhosis of liver; F41.1 Generalized anxiety disorder; K43.9 Ventral hernia without obstruction or gangrene; K59.00 Constipation, unspecified; K82.8 Other specified diseases of gallbladder; R11.2 Nausea with vomiting, unspecified; R68.81 Early satiety; R12 Heartburn; J45.909 Unspecified asthma, uncomplicated; N42.9 Disorder of prostate, unspecified; F17.200 Nicotine dependence, unspecified, uncomplicated; Z80.9 Family history of malignant neoplasm, unspecified; Z79.891 Long term (current) use of opiate analgesic; Z79.51 Long term (current) use of inhaled steroids; Z82.49 Family history of ischemic heart disease and other diseases of the circulatory system; Z83.3 Family history of diabetes mellitus; Z85.46 Personal history of malignant neoplasm of prostate; Z79.899 Other long term (current) drug therapy; Z87.81 Personal history of (healed) traumatic fracture; Z92.21 Personal history of antineoplastic chemotherapy; Z87.19 Personal history of other diseases of the digestive system; Z90.79 Acquired absence of other genital organ(s); Z86.19 Personal history of other infectious and parasitic diseases
CPT/HCPCS: 36415; 74000; 76705; 80053; 81001; 82150; 83690; 85025; 85610; 85730; 88304; 96361; 96374; 96375; 99285

== ENCOUNTER → 2016-12-06 | Outpatient (CLI) | payer MEDICARE ==
[2016-12-06 10:08] LABS: CH 30.6; CHCM 31.6; HCT 48.7 % (39.0-53.0); HDW 2.08; HGB 15.2 gm/dL (13.0-17.5); MCH 30.4 pg (25.0-35.0); MCHC 31.2 g/dL (31.0-37.0); MCV 97.3 fL (80.0-100.0); Mean Platelet Volume 8.6; RDW 13.5 % (11.5-15.5); WBC 4.8 k/uL (3.8-10.6)
[2016-12-06 10:11] LABS: ALT 104 U/L (21-72); AST 89 U/L (17-59); Alkaline Phosphatase 215 U/L (38-126); Anion Gap 11 mmol/L; Blood Urea Nitrogen 14 mg/dL (9-20); Calcium 9.7 mg/dL (8.4-10.2); Carbon Dioxide 28 mmol/L (22-30); Chloride 106 mmol/L (98-107); Glucose 88 mg/dL (74-99); Non-African American GFR(MDRD) >60 (>60 ml/min/1.73 sqM); Sodium 145 mmol/L (137-145); Total Bilirubin 0.8 mg/dL (0.2-1.3); Total Protein 7.5 g/dL (6.3-8.2)
--- NOTE | 2016-12-07 15:13 | MR ---
EXAMINATION TYPE: MR abdomen wo/w con DATE OF EXAM: 12/06/2016 11:49 AM COMPARISON: MRI abdomen August 11, 2016. CT abdomen June 18, 2016. HISTORY: hepatocellular ca progress study. CONTRAST: Standard multiplanar, multisequence MRI departmental protocol utilizing 14 mL intravenous MultiHance gadolinium contrast. FINDINGS: LIVER: Liver remains slightly small in size with lobulated peripheral nodular contour. The findings a re consistent with underlying cirrhosis. There are a few simple appearing cysts redemonstrated scatte red throughout the liver . There is redemonstration of central lobulated lesion that is fairly isoint ense to liver parenchyma on T1 and T2 weighted images that shows absent enhancement may correspond to known neoplasm but has atypical features of HCC measuring 5 5.0 cm on long axis on postcontrast seri es 701 image 367 felt stable in size from prior exam. Some delayed rim type enhancement is typical of HCC and is once again redemonstrated. No early arterial enhancement is clearly present. There is persistent mild to moderate irregular left-sided intrahepatic biliary dilatation seen best o n coronal series 801 image 38 felt more prominent from prior exam. Just anterior to this in the left hepatic lobe lateral segment there is new 3.5 x 2.2 cm lobulated lesion of T1 hypointensity without p ostcontrast enhancement. This appears to correlate with prior smaller satellite lesion on coronal felisa ges that if same process is significantly increased in size prior exam. Smaller satellite lesion othe rwise is not clearly evident on today's study. Current exam is better performed as first phase of postcontrast images is in true hepatic arterial ph ase . Some foci of increased T1 signal is seen posteriorly in the new superior anterior lateral segme nt left hepatic lobe lesion. No definitive enhancement is noted in either lesion. There is now subtle focal filling defect in the portal vein at the avel hepatis level on coronal felisa ge 50 and axial image 309 consistent with partial thrombus. Some slightly more prominent partial occl usive thrombus extension into right portal vein is seen on axial image 329 confirmed best on coronal image 51 near level of central mass. There is patency of the hepatic veins draining into the IVC. No new masses are clearly seen. Gallbladder is not as well visualized and may be surgically absent or contracted in appearance. No extrahepatic biliary dilatation is noted. OTHER: Lung bases are clear. Spleen does not appear abnormally enlarged. Pancreas and both adrenal gl ands are normal in size. There is no concerning renal mass or hydronephrosis seen bilaterally. There is no suspicious bowel dilatation. Visualized osseous structures are intact. There is no new concerni ng abdominal adenopathy clearly seen. IMPRESSION: Redemonstration of cirrhotic liver with central lobulated mass or known HCC felt stable in size. Smal ler satellite lesion however is significantly increased in size with increasing moderate left-sided i ntrahepatic beaded biliary dilatation noted. There is also new partial occlusive thrombus main portal vein and more prominent in the right portal vein.
== END | disposition home or self-care (01) ==
LOC: RADMRIMAIN 09:37
PROVIDERS: ATTEND Radiology Vascular & Interventional Radiology
DX: K74.60 Unspecified cirrhosis of liver (principal); K76.89 Other specified diseases of liver; C22.0 Liver cell carcinoma
CPT/HCPCS: 80053; 85027; 82105; 74183; A9577

== ENCOUNTER 2017-02-11 16:49 | Inpatient (IN) | payer MEDICARE ==
[2017-02-11] MEDS ORDERED: SODIUM CHLORIDE 0.9% 1,000 ML IV ONE (17:41)
[2017-02-11] MEDS ORDERED: ONDANSETRON 4 MG/2 ML VIAL IVP STA (17:41)
[2017-02-11 17:47] LABS: Basophils # (A) 0.1 k/uL (0-0.2); Basophils % (A) 2 %; CH 31.6; CHCM 33.1; Eosinophils # (A) 0.2 k/uL (0-0.7); Eosinophils % (A) 4 %; HCT 39.6 % (39.0-53.0); HDW 2.09; HGB 13.1 gm/dL (13.0-17.5); Luc # (Auto) 0.12; Luc % (Auto) 2; Lymphocytes # (A) 0.8 k/uL (1.0-4.8); Lymphocytes % (A) 15 %; MCH 31.7 pg (25.0-35.0); MCV 95.9 fL (80.0-100.0); Mean Platelet Volume 9.3; Monocytes # (A) 0.3 k/uL (0-1.0); Monocytes % (A) 7 %; Neutrophils # (A) 3.7 k/uL (1.3-7.7); Neutrophils % (A) 71 %; RBC 4.12 m/uL (4.30-5.90); RDW 15.3 % (11.5-15.5); WBC 5.3 k/uL (3.8-10.6); WBC (Perox) 4.86
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
[2017-02-11 17:50] LABS: Appearance,Urine Clear (Clear); Bilirubin,Urine 2+ (Negative); Glucose,Urine (UA) Negative (Negative); Ketones,Urine Negative (Negative); Leukocyte Esterase,Urine Negative (Negative); Nitrite,Urine Negative (Negative); Protein,Urine Negative (Negative); Specific Gravity,Urine 1.016 (1.001-1.035); UA Billing (MACRO vs. MICRO) CHEM
[2017-02-11 17:53] LABS: INR 1.3 (<1.1)
[2017-02-11 17:58] LABS: ALT 189 U/L (21-72); AST 252 U/L (17-59); Alkaline Phosphatase 376 U/L (38-126); Anion Gap 9 mmol/L; Blood Urea Nitrogen 14 mg/dL (9-20); Carbon Dioxide 24 mmol/L (22-30); Chloride 109 mmol/L (98-107); Glucose 77 mg/dL (74-99); Non-African American GFR(MDRD) >60 (>60 ml/min/1.73 sqM); Potassium 3.7 mmol/L (3.5-5.1); Sodium 142 mmol/L (137-145); Total Bilirubin 9.3 mg/dL (0.2-1.3)
--- NOTE | 2017-02-11 19:31 | XR ---
EXAMINATION TYPE: XR KUB DATE OF EXAM: 02/11/2017 7:09 PM COMPARISON: 10/12/2016 HISTORY: Abdominal pain TECHNIQUE: 2 views FINDINGS: There is no sign of intestinal obstruction or pneumoperitoneum. Fecal pattern is normal. Th ere are clips from cholecystectomy. There is no sign of a mass. IMPRESSION: Nonacute abdomen. No adverse change compared to old exam.
[2017-02-11 19:57] LABS: Amylase 59 U/L (30-110)
--- NOTE | 2017-02-11 20:16 | US ---
EXAMINATION TYPE: US abdomen limited DATE OF EXAM: 02/11/2017 7:58 PM COMPARISON: 2017 GB US and 2017 ABD MRI CLINICAL HISTORY: Pain. history of gb and prostate ca, cirrhosis and known liver lesions, in ER for R UQ pain EXAM MEASUREMENTS: Liver Length: 16.9 cm Gallbladder Wall: Surgically absent CBD: 0.5 cm Right Kidney: 11.5 x 4.7 x 6.1 cm Some exam limitations due to pt's habitus and overlying bowel gas. Pancreas: Obscured by bowel gas Liver: grossly abnormal; diffusely heterogeneous echopattern, some distinct masses with well defined borders, some indistinct and hard to separate from heterogeneous liver tissue. Few masses have a bu ll's eye appearance, echogenic mass at avel 5.4 x 3.1cm; there may be a solid liver mass posterior t o that. Gallbladder: Surgically absent; there is fluid within the gb fossa CBD: wnl Right Kidney: wnl Ascites. IMPRESSION: There is evidence of multiple liver masses that could relate to metastatic disease or yariel jaziel tumor. No dilated ducts. Mild ascites noted. No evidence of renal obstruction.
[2017-02-11] MEDS ORDERED: NALOXONE 0.4 MG/ML 1 ML VIAL IV PRN (21:36)
[2017-02-11 23:41] VITALS: BMI 20.3
[2017-02-12] MEDS: ALBUTEROL NEBULIZED 2.5 MG/3 ML INHALATION PRN ×2 (08:18→13:32)
[2017-02-12] MEDS: FLUTICASONE 50MCG/SPRAY NASAL 16GM EA NOSTRIL SCH (09:00)
[2017-02-12] MEDS: CYANOCOBALAMIN 500 MCG TAB PO SCH (09:00)
[2017-02-12] MEDS ORDERED: LORATADINE 10 MG TAB PO SCH (09:00)
[2017-02-12] MEDS: PANTOPRAZOLE 40 MG TABLET PO SCH (09:00)
[2017-02-12] MEDS: diphenhydrAMINE 25 MG CAP PO PRN ×2 (11:24→15:39)
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
[2017-02-13 00:44] VITALS: RESP 16
[2017-02-13 07:40] VITALS: BP 87/51; PULSE 54; TEMP 97.9
[2017-02-13] MEDS: CYANOCOBALAMIN 500 MCG TAB PO SCH (08:20)
[2017-02-13] MEDS: FLUTICASONE 50MCG/SPRAY NASAL 16GM EA NOSTRIL SCH (08:20)
[2017-02-13] MEDS: PANTOPRAZOLE 40 MG TABLET PO SCH (08:20)
[2017-02-13] MEDS: diphenhydrAMINE 25 MG CAP PO PRN (11:22)
--- NOTE | 2017-02-14 16:18 | P.DS ---
Providers Date of admission: 02/11/17 21:38 Expected date of discharge: 02/13/17 Attending physician: Shanna Sinha Consults: 02/11/17 21:37 Consult Physician Urgent Consulting Provider: Rogelio Frias Consult Reason/Comments: Oncological care Do you want consulting provider notified?: Already Contacted [facility] Course: This is a 71-year-old patient of Dr. Tobar with a past medical history of prostate cancer many years ago, liver cancer under the care of Dr. Mendez diagnosed in 2014, cirrhosis of the liver, hepatitis C. he was last hospitalized in October 2016 at which time he presented with acute cholecystitis and underwent laparoscopic cholecystectomy with Dr. Orozco. He is currently under the care of Dr. Champion and Paz regarding his hepatocellular carcinoma on oral chemotherapy. He states he had a reaction to this and the dose has been decreased. He last saw Dr. Mendez a couple months ago but has been at [facility] since that time. Patient complains of his urine being dark and smelly and noted that he was having a bowel movement whenever he urinated at the same time. He called Dr. Tobar's office and he dropped off a urinalysis and started him on ciprofloxacin 500 mg twice daily. Patient took 5 tablets out of course prescribed. Prior to this patient had taken 3 pills from a Z-Wong that were left over from a previous prescription. Patient also states he has a little bit of burning when he urinates. He feels tired and achy and itchy all over. His stools are pale in color. He also complains of feeling hot and cold. He states he has not been able to sleep because he is itching all night. He complains of abdominal pain at the site of ventricle hernia that is sometimes painful but not always. Liver function tests are all elevated with bilirubin of 9.3, AST 252, ALT 189, alkaline phosphatase 376. Amylase and lipase were within normal limits. Urinalysis was dark, bilirubin 2+, nitrate and leukoesterase were negative. Urine culture is in progress. Urine culture from February 09 as an outpatient has been finalized with no growth. Ultrasound of the abdomen shows evidence of multiple liver masses that could relate to metastatic disease or primary tumor. No dilated ducts. Mild ascites noted. No evidence of renal obstruction. KUB showed non-acute abdomen. Patient has been admitted to the surgical unit and consult requested with oncology. Medications the patient is on not listed on his home medication list include ciprofloxacin, [place] and Xanax. 02/13: Patient has been seen by Dr. Bejarano with plan for outpatient MRI to be done at [facility] which will be set up by Dr. Bejarano and then follow-up with oncology. Patient states itching is a little better from yesterday. He is anxious to be discharged home. Patient is being discharged home today in stable condition. Discharge diagnoses: 1. Hepatocellular carcinoma 2. Pruritus secondary to liver failure 3. History of prostate cancer in the remote past, stable. 4. History of hepatitis C and cirrhosis of the liver, stable. 5. Generalized anxiety disorder. 6. Probable COPD. Discharge plan: Return home Impression and plan of care have been directed as dictated by the signing physician. Jeannie Aguirre nurse practitioner acting as scribe for signing physician. Patient Condition at Discharge: Good Plan - Discharge Summary Discharge Medication List Albuterol Sulfate [Proair Hfa] 1 - 2 puff INHALATION RT-Q6H PRN 10/05/15 [ History] Mometasone Furoate [Nasonex Nasal [place]] 2 spray EA NOSTRIL DAILY 10/05/15 [ History] Omeprazole 40 mg PO DAILY 09/17/16 [History] Cyanocobalamin (Vitamin B-12) [Vitamin B-12] 1,000 mcg PO DAILY 02/11/17 [ History] diphenhydrAMINE [Benadryl] 25 mg PO Q4H PRN cap 02/13/17 [Rx] Follow up Appointment(s)/Referral(s): Jose Maria Tobar DO [Primary Care Provider] - 1 Week (Office states they will call patient with appointment day and time.) Rocio Champion MD [STAFF PHYSICIAN] - 02/21/17 2:45 pm Activity/Diet/Wound Care/Special Instructions: Stop norco and xanax. OP MRI to be done at [facility]. Discharge Disposition: HOME SELF-CARE
== END 2017-02-13 13:05 | disposition home or self-care (01) | DRG 435 ==
LOC: EC 16:49 → 3SUR 21:38
PROVIDERS: ADMIT Internal Medicine; ATTEND Internal Medicine
DX: C22.0 Liver cell carcinoma (principal); K72.00 Acute and subacute hepatic failure without coma; J44.9 Chronic obstructive pulmonary disease, unspecified; R18.8 Other ascites; K74.60 Unspecified cirrhosis of liver; B19.20 Unspecified viral hepatitis C without hepatic coma; J45.909 Unspecified asthma, uncomplicated; L29.8 Other pruritus; K43.9 Ventral hernia without obstruction or gangrene; F17.200 Nicotine dependence, unspecified, uncomplicated; R53.1 Weakness; R23.2 Flushing; F41.1 Generalized anxiety disorder; Z85.46 Personal history of malignant neoplasm of prostate; Z83.3 Family history of diabetes mellitus; Z71.3 Dietary counseling and surveillance; Z82.49 Family history of ischemic heart disease and other diseases of the circulatory system; Z92.3 Personal history of irradiation; Z92.21 Personal history of antineoplastic chemotherapy; Z79.899 Other long term (current) drug therapy; Z87.828 Personal history of other (healed) physical injury and trauma; Z87.81 Personal history of (healed) traumatic fracture; Z90.79 Acquired absence of other genital organ(s); Z90.49 Acquired absence of other specified parts of digestive tract; Z80.8 Family history of malignant neoplasm of other organs or systems; Z79.891 Long term (current) use of opiate analgesic; Z79.51 Long term (current) use of inhaled steroids
CPT/HCPCS: 36415; 74000; 76705; 80053; 81003; 82150; 83690; 85025; 85610; 87086; 89055; 94640; 96361; 96374; 99285

== ENCOUNTER 2017-03-04 17:16 | Emergency (ER) | payer MEDICARE ==
[2017-03-04 17:34] VITALS: TEMP 98.8
[2017-03-04] MEDS ORDERED: IPRATROPIUM-ALBUTEROL 3 ML NEB INHALATION STA (18:36)
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
[2017-03-04 18:56] VITALS: RESP 18
[2017-03-04 18:57] LABS: Anisocytosis Slight; Basophils % (A) 1 %; CHCM 33.7; Eosinophils # (A) 0.2 k/uL (0-0.7); Eosinophils % (A) 4 %; HCT 37.8 % (39.0-53.0); HGB 12.5 gm/dL (13.0-17.5); Luc # (Auto) 0.12; Luc % (Auto) 2; Lymphocytes # (A) 0.7 k/uL (1.0-4.8); Lymphocytes % (A) 12 %; MCH 31.7 pg (25.0-35.0); MCHC 33.1 g/dL (31.0-37.0); MCV 95.7 fL (80.0-100.0); Mean Platelet Volume 9.3; Monocytes # (A) 0.3 k/uL (0-1.0); Monocytes % (A) 5 %; Neutrophils % (A) 76 %; RBC 3.94 m/uL (4.30-5.90); RDW 17.1 % (11.5-15.5); WBC 5.3 k/uL (3.8-10.6); WBC (Perox) 5.69
[2017-03-04 18:59] LABS: INR 1.3 (<1.1); Partial Thromboplastin Time 34.3 sec (22.0-30.0); Prothrombin Time 13.2 sec (9.0-12.0)
[2017-03-04 19:00] LABS: ALT 175 U/L (21-72); AST 234 U/L (17-59); Alkaline Phosphatase 441 U/L (38-126); Anion Gap 6 mmol/L; Blood Urea Nitrogen 12 mg/dL (9-20); Calcium 8.4 mg/dL (8.4-10.2); Carbon Dioxide 25 mmol/L (22-30); Chloride 108 mmol/L (98-107); Glucose 104 mg/dL (74-99); Non-African American GFR(MDRD) >60 (>60 ml/min/1.73 sqM); Sodium 139 mmol/L (137-145); Total Bilirubin 6.8 mg/dL (0.2-1.3)
[2017-03-04 19:14] LABS: Creatine Kinase 84 U/L (55-170)
--- NOTE | 2017-03-04 19:18 | XR ---
EXAMINATION TYPE: XR chest 2V DATE OF EXAM: 03/04/2017 7:01 PM COMPARISON: 09/17/2016 HISTORY: Short of breath TECHNIQUE: Frontal and lateral views of the chest are obtained. FINDINGS: Heart and mediastinum are normal. Lungs are clear. Costophrenic angles are clear. Bilatera l nipple shadows are noted. There is no pleural effusion. Bony thorax appears intact. IMPRESSION: No active cardiopulmonary disease. Normal heart. Minimal fibrotic changes at the left mar ng base. No change compared to old exam.
[2017-03-04 19:27] LABS: Creatine Kinase MB 0.9 ng/mL (0.0-2.4); Troponin I <0.012 ng/mL (0.000-0.034)
[2017-03-04] MEDS ORDERED: SODIUM CHLORIDE 0.9% 500 ML IV STA (19:42)
[2017-03-04 20:14] VITALS: BP 111/67; PULSE 63
== END 2017-03-04 20:14 | disposition home or self-care (01) ==
LOC: EC 17:16
DX: J45.909 Unspecified asthma, uncomplicated (principal); E86.0 Dehydration; R17 Unspecified jaundice; F41.9 Anxiety disorder, unspecified; F17.200 Nicotine dependence, unspecified, uncomplicated; Z85.05 Personal history of malignant neoplasm of liver; Z79.899 Other long term (current) drug therapy
CPT/HCPCS: 36415; 71020; 80053; 82550; 82553; 83735; 83880; 84484; 85025; 85610; 85730; 87040; 93005; 94640; 99285

== ENCOUNTER 2017-03-27 08:28 | Day surgery (SDC) | payer MEDICARE ==
[2017-03-27 09:40] VITALS: BP 114/69; PULSE 61; RESP 16; TEMP 98.1
--- NOTE | 2017-03-27 10:12 | US ---
EXAMINATION TYPE: US abdomen limited DATE OF EXAM: 03/27/2017 COMPARISON: Prior abdomen ultrasound 02/11/2017 CLINICAL HISTORY: R14.0 distention, liver cancer. EXAM MEASUREMENTS: Liver Length: 11.2 cm Gallbladder Wall: Surgically absent cm CBD: 0.5 cm Right Kidney: 11.1 x 5.2 x 5.3 cm Excessive midline bowel gas, only able to visualize right lobe of liver intercostally Pancreas: Obscured by bowel gas Liver: diffusely heterogeneous, grossly abnormal, somewhat limited visualization due to bowel gas, i nnumerable masses Gallbladder: Surgically absent Evidence for sonographic Terrazas's sign: no CBD: wnl Right Kidney: wnl There is minimal ascites present. IMPRESSION: Findings compatible with patient's history of liver masses. Minimal ascites. No percutane ous paracentesis performed this time.
--- NOTE | 2017-03-27 10:26 | US ---
Discontinued paracentesis HISTORY: Distention R14.0, liver CA, C 22.0 Abdominal ultrasound shows only small amount of ascites. IMPRESSION: Small amount of ascites, no percutaneous paracentesis performed at this time.
== END 2017-03-27 09:55 | disposition home or self-care (01) ==
LOC: RADUSMAIN 08:28 → EDSTATUS 08:40 → RADUSMAIN 09:55
PROVIDERS: ATTEND Internal Medicine Hematology & Oncology
DX: R14.0 Abdominal distension (gaseous) (principal); C22.8 Malignant neoplasm of liver, primary, unspecified as to type; Z53.8 Procedure and treatment not carried out for other reasons
CPT/HCPCS: 76705

== ENCOUNTER → 2017-03-28 | Outpatient (CLI) | payer MEDICARE ==
--- NOTE | 2017-03-28 12:34 | CT ---
EXAMINATION TYPE: CT angio chest DATE OF EXAM: 03/28/2017 COMPARISON: NONE HISTORY: SOB, liver CA CT DLP: 210.9 mGycm CONTRAST: CT chest with contrast and 3D reconstruction with MIP imaging is performed with IV Contrast, patient injected with 100 mL of Omnipaque 350. Contrast-enhanced CT of the chest was performed through the course of the pulmonary arteries with wai g and mediastinal window settings submitted. 3D reconstruction with MIP imaging was also performed. PULMONARY ARTERIES: The pulmonary arteries and their major tributaries are patent. I do not see anibal dence for sizable filling defect to suggest pulmonary embolic process. LUNGS: Small bilateral pleural effusions noted with areas of atelectasis at the lung bases right grea ter than left. Superimposed emphysematous changes. MEDIASTINUM: Thoracic aorta is of normal caliber . The heart is not enlarged. No evidence for media stinal mass. No mediastinal lymph nodes greater than 1cm. HILAR STRUCTURES: No evidence for mass. No hilar lymph nodes greater than 1 cm. UPPER ABDOMEN: Lobulated hepatic contour. Ascites. Omental thickening noted. IMPRESSION: 1. No evidence for Pulmonary embolism at this time.
== END | disposition home or self-care (01) ==
LOC: RADCTMAIN 10:54
PROVIDERS: ATTEND Internal Medicine Hematology & Oncology
DX: C22.0 Liver cell carcinoma (principal); R06.02 Shortness of breath
CPT/HCPCS: 71275; Q9967

== ENCOUNTER → 2017-04-09 | Outpatient (CLI) | payer MEDICARE ==
--- NOTE | 2017-04-09 16:16 | XR ---
EXAMINATION TYPE: XR chest 2V DATE OF EXAM: 04/09/2017 COMPARISON: Chest x-ray March 04, 2017. CTA chest March 28, 2017. HISTORY: History of liver cancer presents with shortness of breath TECHNIQUE: Frontal and lateral views of the chest are obtained. FINDINGS: Underlying emphysematous change is present seen better on CT. There is elevated right doron diaphragm redemonstrated. There is progression in small size left-sided pleural effusion . There is a ssociated left basilar atelectasis and/or infiltrate. There is worsening right medial basilar atelect asis and/or infiltrate The cardiac silhouette size is within normal limits. The osseous structures are intact. IMPRESSION: Small left pleural effusion slightly progressed from prior studies. Associated left basi lar atelectasis and/or infiltrate noted. New right medial basilar infiltrate and/or atelectasis noted .
== END ==
LOC: RADXRMAIN 15:56
PROVIDERS: ATTEND Internal Medicine Hematology & Oncology
DX: C22.0 Liver cell carcinoma (principal); C61 Malignant neoplasm of prostate; J90 Pleural effusion, not elsewhere classified
CPT/HCPCS: 71020

== ENCOUNTER 2017-04-23 17:24 | Observation (INO) | payer MEDICARE ==
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
[2017-04-23 18:26] LABS: Anisocytosis Slight; Basophils % (A) 1 %; CH 31.5; CHCM 33.2; Eosinophils # (A) 0.1 k/uL (0-0.7); Eosinophils % (A) 1 %; HCT 47.9 % (39.0-53.0); HDW 2.23; HGB 16.1 gm/dL (13.0-17.5); Luc # (Auto) 0.13; Luc % (Auto) 2; Lymphocytes # (A) 0.5 k/uL (1.0-4.8); Lymphocytes % (A) 6 %; MCH 32.1 pg (25.0-35.0); MCHC 33.6 g/dL (31.0-37.0); MCV 95.6 fL (80.0-100.0); Mean Platelet Volume 8.4; Monocytes # (A) 0.3 k/uL (0-1.0); Monocytes % (A) 3 %; Neutrophils # (A) 7.6 k/uL (1.3-7.7); Neutrophils % (A) 87 %; RBC 5.01 m/uL (4.30-5.90); RDW 16.9 % (11.5-15.5); WBC 8.7 k/uL (3.8-10.6); WBC (Perox) 8.42
[2017-04-23] MEDS ORDERED: MORPHINE SULFATE 4 MG/ML SYRINGE IVP STA (18:32)
[2017-04-23] MEDS ORDERED: ONDANSETRON 4 MG/2 ML VIAL IVP STA (18:32)
[2017-04-23] MEDS ORDERED: IPRATROPIUM-ALBUTEROL 3 ML NEB INHALATION STA (18:32)
[2017-04-23] MEDS ORDERED: IPRATROPIUM-ALBUTEROL 3 ML NEB INHALATION PRN (18:32)
[2017-04-23] MEDS ORDERED: ONDANSETRON 4 MG/2 ML VIAL IVP PRN (18:32)
[2017-04-23 18:33] LABS: ALT 91 U/L (21-72); AST 125 U/L (17-59); Alkaline Phosphatase 282 U/L (38-126); Amylase 58 U/L (30-110); Anion Gap 10 mmol/L; Blood Urea Nitrogen 13 mg/dL (9-20); Calcium 8.6 mg/dL (8.4-10.2); Carbon Dioxide 21 mmol/L (22-30); Chloride 110 mmol/L (98-107); Glucose 86 mg/dL (74-99); Non-African American GFR(MDRD) >60 (>60 ml/min/1.73 sqM); Potassium 4.3 mmol/L (3.5-5.1); Sodium 141 mmol/L (137-145); Total Protein 7.1 g/dL (6.3-8.2)
[2017-04-23] MEDS ORDERED: SODIUM CHLORIDE 0.9% 1,000 ML IV ONE (18:36)
[2017-04-23 18:38] LABS: Prothrombin Time 19.2 sec (9.0-12.0)
[2017-04-23 18:45] LABS: Creatine Kinase 73 U/L (55-170)
[2017-04-23 18:57] LABS: Creatine Kinase MB 1.6 ng/mL (0.0-2.4); Troponin I <0.012 ng/mL (0.000-0.034)
--- NOTE | 2017-04-23 19:35 | XR ---
EXAMINATION TYPE: XR chest 2V DATE OF EXAM: 04/23/2017 COMPARISON: CT chest March 28, 2017. Two-view chest x-ray April 09, 2017. HISTORY: History of asthma and liver cancer presents with shortness of breath. TECHNIQUE: Frontal and lateral views of the chest are obtained. FINDINGS: Background chronic emphysematous change is present seen better on recent CT. There is pers istent patchy bibasilar atelectasis and/or infiltrate. Somewhat low lung volumes are redemonstrated. There is persistent small bilateral pleural effusions The cardiac silhouette size is within normal l imits. The osseous structures are intact. IMPRESSION: Chronic emphysematous change with small bilateral pleural effusions and patchy bibasilar atelectasis and/or infiltrate all redemonstrated.
[2017-04-23] MEDS ORDERED: HYDROcodone/APAP 10-325MG 1 EACH TAB PO PRN (20:26)
[2017-04-23] MEDS ORDERED: ALPRAZOLAM 2 MG PO PRN (20:26)
[2017-04-23] MEDS ORDERED: MOMETASONE FUROATE EA NOSTRIL PRN (20:26)
[2017-04-23] MEDS ORDERED: ALBUTEROL INHALER 60 PUFF/8 GM INHALER INHALATION PRN (20:26)
[2017-04-23 20:47] VITALS: BMI 24.0
[2017-04-23] MEDS: MORPHINE SULFATE 4 MG/ML SYRINGE IVP PRN (23:30)
[2017-04-24] MEDS: MORPHINE SULFATE 4 MG/ML SYRINGE IVP PRN ×3 (05:00→22:14)
[2017-04-24] MEDS ORDERED: NON-FORMULARY DRUG (Cyanocobalamin (Vitamin B-12) [Vitamin B-12] 1,000 MCG) PO SCH (09:00)
[2017-04-24] MEDS ORDERED: SPIRONOLACTONE 25 MG TAB PO SCH (09:00)
[2017-04-24] MEDS ORDERED: PHYTONADIONE 5 MG in SODIUM CHLORIDE 0.9% 50 ML IVPB STA (10:56)
[2017-04-24] MEDS ORDERED: DOCUSATE 100 MG CAP PO PRN (11:00)
[2017-04-24] MEDS ORDERED: MAGNESIUM HYDROXIDE 2,400 MG/10 ML CUP PO PRN (11:00)
[2017-04-24 13:18] LABS: Prothrombin Time 18.9 sec (9.0-12.0)
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
--- NOTE | 2017-04-24 14:17 | US ---
EXAMINATION TYPE: US paracentesis abd w/image DATE OF EXAM: 04/24/2017 COMPARISON: NONE HISTORY: Ascites. PROCEDURE: Maximal barrier technique was utilized. The skin overlying a suitable pocket of fluid was localized with ultrasound and the overlying skin was prepped and draped. Ultrasound was utilized with sterile technique. Lidocaine was used for local anesthesia and a skin wenceslao made with a scalpel. Catheter was advanced under direct ultrasound guidance into a suitable pocket of fluid and approximately 3 liters of yellow fluid were removed. Catheter was withdrawn and hemostasis achieved. There is no immediate complication; the patient is discharged in stable condition. IMPRESSION: STATUS POST ULTRASOUND GUIDED PARACENTESIS FOR PALLIATION OF ASCITES. THIS PROCEDURE WA S PERFORMED BY THE UNDERSIGNED.
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
[2017-04-25] MEDS: MORPHINE SULFATE 4 MG/ML SYRINGE IVP PRN ×2 (07:23→12:02)
[2017-04-25 08:06] VITALS: BP 93/55; PULSE 66; RESP 20; TEMP 97.7
[2017-04-25] MEDS ORDERED: PHYTONADIONE ORAL 5 MG/5 ML ORAL.SYRG PO SCH (09:00)
[2017-04-25 09:08] LABS: INR 1.5 (<1.2)
--- NOTE | 2017-04-25 14:29 | P.DS ---
Providers Date of admission: 04/23/17 18:36 Expected date of discharge: 04/25/17 Attending physician: Shanna Sinha Consults: 04/23/17 18:36 Consult Physician Routine Consulting Provider: Rocio Champion Consult Reason/Comments: known Do you want consulting provider notified?: Yes [facility] Course: This is a 71-year-old patient of Dr. Tobar with a past medical history of prostate cancer many years ago, liver cancer under the care of Dr. Champion diagnosed in 2014, cirrhosis of the liver, hepatitis C. patient is currently in the care of Dr. Champion and recently started on nivolumab of 2 cycles. Patient has had progressive abdominal distention and was scheduled for an outpatient paracentesis set up by Dr. Mendez for Sunday. However, patient had increased tension in his belly and shortness of breath due to the size of his abdomen. He also states that he thought he was going to pass out. He has had a weight gain of 20 pounds since January. He states he is not eating. He has no appetite. He is on Lovenox at home and his last dose was 2 days ago which she states is due to a liver clot. Patient has been admitted to the hospital and due to an INR of 2 he was given vitamin K with plan for therapeutic paracentesis. 04/25: Patient underwent paracentesis with interventional radiology with removal of 3 L of fluid. We'll planning to send the patient home on Marinol to help with appetite however this is not covered by his insurance. Patient can follow- up with Dr. Mendez regarding this. Prescription for morphine was provided. Patient will be discharged home today in stable condition. Discharge diagnoses: 1. Ascites secondary to hepatocellular carcinoma 2. Hypercoagulopathy secondary to liver cancer 3. History of prostate cancer in the remote past, stable. 4. History of hepatitis C and cirrhosis of the liver, stable. 5. Generalized anxiety disorder. 6. Probable COPD. 8. Liver thrombosis Discharge plan: Return home Impression and plan of care have been directed as dictated by the signing physician. Jeannie Aguirre nurse practitioner acting as scribe for signing physician. Patient Condition at Discharge: Good Plan - Discharge Summary New Discharge Prescriptions: New Morphine Sulfate Ir [MSIR] 15 mg PO Q8H PRN #21 tab PRN Reason: Pain No Action Mometasone Furoate [Nasonex Nasal [place]] 2 spray EA NOSTRIL QAM PRN PRN Reason: Allergy Symptoms Albuterol Sulfate [Proair Hfa] 1 - 2 puff INHALATION RT-Q6H PRN PRN Reason: Shortness Of Breath Hydrocodone/Acetaminophen [[place] 10-325 Tablet] 1 tab PO Q6H PRN PRN Reason: Pain ALPRAZolam [Xanax] 2 mg PO TID PRN PRN Reason: Anxiety Albuterol Nebulized [Ventolin Nebulized] 2.5 mg INHALATION RT-QID PRN PRN Reason: Shortness Of Breath Enoxaparin [Lovenox] 100 mg SQ DAILY Cyanocobalamin (Vitamin B-12) [Vitamin B-12] 1,000 mcg PO DAILY Nivolumab [Opdivo] 40 mg IV [id number] Spironolactone [Aldactone] 25 mg PO DAILY Discharge Medication List Albuterol Sulfate [Proair Hfa] 1 - 2 puff INHALATION RT-Q6H PRN 10/05/15 [ History] Mometasone Furoate [Nasonex Nasal [place]] 2 spray EA NOSTRIL QAM PRN 10/05/15 [ History] ALPRAZolam [Xanax] 2 mg PO TID PRN 03/04/17 [History] Albuterol Nebulized [Ventolin Nebulized] 2.5 mg INHALATION RT-QID PRN 03/04/17 [ History] Hydrocodone/Acetaminophen [[place] 10-325 Tablet] 1 tab PO Q6H PRN 03/04/17 [ History] Enoxaparin [Lovenox] 100 mg SQ DAILY 03/23/17 [History] Cyanocobalamin (Vitamin B-12) [Vitamin B-12] 1,000 mcg PO DAILY 04/18/17 [ History] Nivolumab [Opdivo] 40 mg IV [id number] 04/18/17 [History] Spironolactone [Aldactone] 25 mg PO DAILY 04/23/17 [History] Morphine Sulfate Ir [MSIR] 15 mg PO Q8H PRN #21 tab 04/25/17 [Rx] Follow up Appointment(s)/Referral(s): Jose Maria Tobar DO [Primary Care Provider] - 1 Week (please call to make follow up appointment, office closed at this time) Rocio Champion MD [STAFF PHYSICIAN] - 1 Week (please call for follow up appointment, office closed for lunch at this time) Patient Instructions/Handouts: Dronabinol (By mouth), Morphine, Slow Release ( By mouth), Liver Cancer (DC), Ascites (DC) Discharge Disposition: HOME SELF-CARE
== END 2017-04-25 14:02 | disposition home or self-care (01) ==
LOC: EC 17:24 → 5ONC 18:36
PROVIDERS: ADMIT Internal Medicine; ATTEND Internal Medicine
DX: C22.0 Liver cell carcinoma (principal); R18.8 Other ascites; Z85.46 Personal history of malignant neoplasm of prostate; F41.1 Generalized anxiety disorder; F32.9 Major depressive disorder, single episode, unspecified; B19.20 Unspecified viral hepatitis C without hepatic coma; K74.60 Unspecified cirrhosis of liver; I74.8 Embolism and thrombosis of other arteries; J45.909 Unspecified asthma, uncomplicated; Z79.899 Other long term (current) drug therapy; Z79.01 Long term (current) use of anticoagulants; Z92.21 Personal history of antineoplastic chemotherapy; Z87.891 Personal history of nicotine dependence; Z83.3 Family history of diabetes mellitus; Z82.49 Family history of ischemic heart disease and other diseases of the circulatory system; D68.9 Coagulation defect, unspecified
CPT/HCPCS: 96376 ×3; 96365; 96375; 99285; 36415; 94640 ×2; 94760; 80053; 82140; 82150; 82550; 82553; 83690; 84484; 85025; 85610 ×3; 85730; 71020; 49083; G0378 ×3; J2270 ×3; J3430; J2405; 96374

== ENCOUNTER 2017-04-28 13:16 | Inpatient (IN) | payer MEDICARE ==
[2017-04-28] MEDS ORDERED: SODIUM CHLORIDE 0.9% 1,000 ML IV STA (13:50)
[2017-04-28] MEDS ORDERED: SODIUM CHLORIDE 0.9% 500 ML IV STA (13:50)
[2017-04-28 13:54] LABS: Glucose,Whole Blood 86 mg/dL (75-99)
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
[2017-04-28 15:11] LABS: Anisocytosis Slight; Basophils % (A) 0 %; CH 31.6; CHCM 32.5; Calcium 8.4 mg/dL (8.4-10.2); Eosinophils % (A) 0 %; HDW 2.44; HGB 15.6 gm/dL (13.0-17.5); Luc # (Auto) 0.14; Luc % (Auto) 2; Lymphocytes # (A) 0.4 k/uL (1.0-4.8); Lymphocytes % (A) 5 %; MCH 31.8 pg (25.0-35.0); MCHC 32.4 g/dL (31.0-37.0); MCV 97.9 fL (80.0-100.0); Macrocytosis Slight; Magnesium 2.6 mg/dL (1.6-2.3); Mean Platelet Volume 8.6; Monocytes # (A) 0.5 k/uL (0-1.0); Monocytes % (A) 5 %; Neutrophils # (A) 8.5 k/uL (1.3-7.7); Neutrophils % (A) 89 %; Phosphorous 6.2 mg/dL (2.5-4.5); Potassium 4.7 mmol/L (3.5-5.1); RDW 18.3 % (11.5-15.5); WBC 9.6 k/uL (3.8-10.6); WBC (Perox) 9.35
--- NOTE | 2017-04-28 15:17 | XR ---
EXAMINATION TYPE: XR chest 2V DATE OF EXAM: 04/28/2017 COMPARISON: Prior chest x-ray 04/23/2017 HISTORY: Prostate cancer, lack of appetite, asthma TECHNIQUE: Frontal and lateral views of the chest are obtained. FINDINGS: There are prominent lung volume suggesting underlying COPD. Basilar density is again noted . No evident pneumothorax. Interstitium is increased. The cardiac silhouette size is unchanged. The osseous structures are intact. IMPRESSION: Findings suggest congestive heart failure or volume overload. Correlate for possible bas ilar pneumonia versus edema or atelectasis.
[2017-04-28 15:20] LABS: Creatine Kinase 67 U/L (55-170)
[2017-04-28 15:21] LABS: Total Bilirubin 25.5 mg/dL (0.2-1.3)
[2017-04-28 15:33] LABS: Troponin I <0.012 ng/mL (0.000-0.034)
[2017-04-28 15:40] LABS: INR 1.6 (<1.2); Partial Thromboplastin Time 40.1 sec (22.0-30.0); Prothrombin Time 15.8 sec (9.0-12.0)
[2017-04-28] MEDS ORDERED: NALOXONE 0.4 MG/ML 1 ML VIAL IV PRN (16:09)
[2017-04-28 18:06] VITALS: BMI 21.2
[2017-04-28] MEDS: SODIUM CHLORIDE 0.9% 1,000 ML IV SCH (18:15)
[2017-04-28] MEDS ORDERED: ALBUTEROL INHALER 60 PUFF/8 GM INHALER INHALATION PRN (18:26)
[2017-04-28] MEDS ORDERED: hydrOXYzine HCL 25 MG TAB PO PRN (18:26)
[2017-04-28] MEDS ORDERED: MORPHINE SULFATE IR 15 MG TABLET PO PRN (18:26)
[2017-04-28] MEDS ORDERED: ALBUTEROL NEBULIZED 2.5 MG/3 ML INHALATION PRN (18:26)
[2017-04-28] MEDS ORDERED: ALPRAZolam 0.5 MG TAB PO PRN (18:26)
[2017-04-29] MEDS: SODIUM CHLORIDE 0.9% 1,000 ML IV SCH ×3 (01:16→19:34)
[2017-04-29] MEDS: ENOXAPARIN 100 MG/ML SYRINGE SQ SCH (07:32)
[2017-04-29 07:57] LABS: Anisocytosis Slight; Basophils % (A) 0 %; CH 31.6; CHCM 33.6; Eosinophils # (A) 0.1 k/uL (0-0.7); Eosinophils % (A) 1 %; HCT 45.5 % (39.0-53.0); HDW 2.47; HGB 15.2 gm/dL (13.0-17.5); Luc # (Auto) 0.15; Luc % (Auto) 1; Lymphocytes # (A) 0.5 k/uL (1.0-4.8); Lymphocytes % (A) 5 %; MCH 31.6 pg (25.0-35.0); MCHC 33.3 g/dL (31.0-37.0); MCV 94.9 fL (80.0-100.0); Mean Platelet Volume 8.9; Monocytes # (A) 0.4 k/uL (0-1.0); Monocytes % (A) 4 %; Neutrophils # (A) 10.1 k/uL (1.3-7.7); Neutrophils % (A) 90 %; RDW 17.8 % (11.5-15.5); WBC 11.3 k/uL (3.8-10.6); WBC (Perox) 10.94
[2017-04-29 08:29] LABS: Calcium 7.6 mg/dL (8.4-10.2); Potassium 4.7 mmol/L (3.5-5.1); Total Protein 6.5 g/dL (6.3-8.2)
[2017-04-29] MEDS: ESOMEPRAZOLE 20 MG in SODIUM CHLORIDE 0.9% 50 ML IVPB SCH (08:35)
[2017-04-29] MEDS: CYANOCOBALAMIN 500 MCG TAB PO SCH (08:37)
[2017-04-29 08:39] LABS: Total Bilirubin 21.8 mg/dL (0.2-1.3)
[2017-04-29] MEDS ORDERED: PANTOPRAZOLE 40 MG TABLET PO SCH (09:00)
[2017-04-29] MEDS ORDERED: chlorproMAZINE 25 MG TAB PO PRN (09:52)
[2017-04-29] MEDS ORDERED: SODIUM CHLORIDE 0.9% 1,000 ML IV ONE (09:52)
--- NOTE | 2017-04-29 10:34 | CONS ---
REASON FOR CONSULT: Renal failure. HISTORY OF PRESENT ILLNESS: Patient is a 71-year-old male with a history of prostate cancer, liver cancer, currently under the care of Dr. Champion which was diagnosed in 2014. Patient also has liver cirrhosis and hepatitis C. He is maintained on chemotherapy as outpatient. He was admitted to the hospital with complaints of weakness. Patient also had diarrhea ongoing for about 2-3 days prior to admission. Family had noticed that his jaundice was also getting worse and he had not had significant oral intake prior to admission. Patient's serum creatinine was noted to be 5.1 mg/dl on admission. His previous creatinine on 04/23 was 0.8 mg/dl. His last admission about 4-5 days ago was for volume overload and patient was discharged on diuretics. Blood pressure has been on the low side with systolic at 95-100 mmHg. It is not clear as to how much urine patient has put out. He has had watery stools and an accurate urine output has not been charged. Currently patient is maintained on IV fluids. He did get one dose of Lasix yesterday in the ER. Chest x-ray showed evidence of volume overload. The patient has been laying flat with no significant shortness of breath noted at this time. PAST MEDICAL HISTORY: Liver cirrhosis, hepatitis C, liver cancer, currently undergoing treatment with Dr. Champion; history of prostatic Ca, asthma, status post prostatectomy, anxiety, depression. PAST SURGICAL HISTORY: Prostatectomy, cholecystectomy, hernia repair, left leg with pins and plate, hemoembolization in the liver, colonoscopy, EGD, left rotator cuff repair. SOCIAL HISTORY: Negative for smoking. Patient is an ex-smoker. No history of drug abuse or alcohol abuse. MEDICATIONS AT HOME: 1. Morphine. 2. Protonix. 3. Atarax. 4. Vitamin B12. ALLERGIES: None. PHYSICAL EXAMINATION: The patient is comfortable, awake, not in any acute distress. He is laying flat with no shortness of breath. Blood pressure is 95/ 56, heart rate 76 per minute, he is afebrile. HEART: S1/S2. LUNGS: Bilateral breath sounds are heard. ABDOMEN: Soft, nontender. LOWER EXTREMITIES: Show edema 1+ mainly in the ankles. MEASUREMENT SUPERVISOR: Grossly intact. Patient is moving all four extremities. LABS: Sodium 141, potassium 4.7, chloride 113, CO2 is 15. BUN 80, serum creatinine 5.2. Hemoglobin 15.2 gm/dl. ASSESSMENT: 1. Acute kidney injury, possibly acute tubular necrosis. Need to rule out hepatorenal syndrome. I will place a Kramer catheter for accurate urine output measurement. Proceed with the IV fluid bolus x1 for now. We need to add pressors if the blood pressure remains low. Check random urine sodium which if low, suggests underlying hepatorenal syndrome. Overall prognosis is guarded. Patient is not a candidate for renal replacement therapy if renal function continues to worsen. 2. Nonanion gap metabolic acidosis secondary to renal failure. 3. Liver cirrhosis from hepatitis C. 4. Liver cancer, currently undergoing treatment with Dr. Champion. 5. Severe hyperbilirubinemia associated with underlying liver cirrhosis and liver cancer. PLAN: IV fluids, check random urine sodium, place Kramer catheter, check UA, check random urine sodium and may need to start Sandostatin and pressors if he remains oliguric. Overall prognosis is guarded. Thank you for this consultation. Will continue to follow the patient with you during his hospitalization. CAROL
[2017-04-29] MEDS: ALBUMIN HUMAN 25% 50 ML in EMPTY BAG 1 BAG IVPB SCH ×2 (10:49→11:32)
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
[2017-04-29 14:04] LABS: Appearance,Urine Cloudy (Clear); Bacteria,Urine Occasional /hpf; Bilirubin,Urine 4+ (Negative); Glucose,Urine (UA) Negative (Negative); Ketones,Urine Negative (Negative); Leukocyte Esterase,Urine Negative (Negative); Mucus,Urine Rare /hpf; Nitrite,Urine Negative (Negative); Particle Count 21788; Protein,Urine Trace (Negative); RBC,Urine 1 /hpf (0-5); Specific Gravity,Urine 1.011 (1.001-1.035); Squamous Epithelial Cell,Urine <1 /hpf (0-4); UA Billing (MACRO vs. MICRO) MICRO; Urobilinogen,Urine <2.0 mg/dL (<2.0); WBC,Urine 1 /hpf (0-5)
--- NOTE | 2017-04-29 15:22 | P.PN ---
Progress Note - Text Consult dictated Impression: 1- End-stage advanced Hepatocellular Carcinoma 2- Acute Kidney injury 2nd to impending liver failure/pre-renal azotemia Rec: 1- Discussed end-stage status with patient & family members 2- Recommended comfort care only > they agree 3- No code status 4- Hospice consult placed Answered all questions/concerns
--- NOTE | 2017-04-29 16:39 | US ---
EXAMINATION TYPE: US kidneys/renal and bladder DATE OF EXAM: 04/29/2017 COMPARISON: None. CLINICAL HISTORY: 71-year-old male with Renal failure TECHNIQUE: Multiple sonographic images of the kidneys and bladder were obtained. FINDINGS: Right Kidney: 11.6 x 5.6 x 6.4 cm Left Kidney: 12.1 x 5.7 x 4.9 cm No hydronephrosis on either side. Bladder not evaluated as it is collapsed by Kramer catheter. There is at least moderate abdominal ascites. IMPRESSION: 1. No hydronephrosis. 2. Kramer catheter decompressing the bladder limiting its evaluation. 3. At least moderate ascites.
--- NOTE | 2017-04-29 18:14 | CONS ---
DATE OF SERVICE: 04/29/2017 CHIEF COMPLAINT: Progressive weakness, anorexia and loss of functional status. HISTORY OF PRESENT ILLNESS: Mr. Garcia is a 71-year-old gentleman with known advanced hepatocellular carcinoma. The patient was treated with arterial embolizing therapy at [facility] as well as Nexavar with poor tolerance and last but not least he received two infusions of Nivolumab. I was contacted by the patient's daughter reporting progressive loss of functional status, decreased oral intact, decreased mental alertness and oral intake. He was directed to the emergency room where he was subsequently hospitalized. When seen today he was very drowsy, arousable, appears to be comfortable. Overall condition appears to be rather poor. The patient was found to have acute renal insufficiency with a BUN and creatinine of 72 and 5.1. Today they were 80 and 5.2. His bilirubin was 25.5 upon admission to the hospital. His total bilirubin was 8.8 when discharged from the hospital one month ago. PAST MEDICAL HISTORY: 1. Advanced hepatocellular carcinoma. 2. Hepatitis C. 3. Remote history of prostate cancer. PAST SURGICAL HISTORY: 1. Includes hepatic arterial infusion of radioactive material. 2. Herniorrhaphy. 3. Cholecystectomy. 4. Prostatectomy. Medications prior to admission to the hospital reviewed and listed in electronic medical record. SOCIAL HISTORY: The patient has prior history of smoking and excessive alcohol consumption but none recently. Mother of mesothelioma. Father of heart failure. REVIEW OF SYSTEMS: Progressive generalized weakness, loss of functional status , decreased oral intake and decreased mental alertness. On examination the patient is drowsy, barely arousable. Appears to be comfortable. Blood pressure was 88/51, pulse 79 and regular, respiratory rate was 19 and not labored, temperature was 96.7. No pathologic lymphadenopathy. Trachea was in midline. Chest was clear with good air exchange bilaterally. Heart sounds were normal. Abdomen was soft with moderate hepatomegaly. Extremities were unremarkable. IMPRESSION: 1. Advanced end stage hepatocellular carcinoma. 2. Acute renal insufficiency due to a combination of impending liver failure as well as prerenal azotemia. 3. Advanced debility of malignancy. RECOMMENDATION: 1. Discussed end stage status with the patient and all his family members. 2. Advise comfort care only, they agree. 3. NO CODE STATUS. 4. Consult hospice to initiate home hospice program. 5. I do not recommend any further labs or x-rays. I answered the family's questions and concerns to their satisfaction. Will follow the patient along with you. CAROL
[2017-04-30] MEDS: SODIUM CHLORIDE 0.9% 1,000 ML IV SCH ×2 (03:07→15:06)
[2017-04-30] MEDS: HYDROcodone/APAP 10-325MG 1 EACH TAB PO PRN ×3 (04:29→17:58)
[2017-04-30 08:09] VITALS: RESP 20
[2017-04-30] MEDS: ENOXAPARIN 100 MG/ML SYRINGE SQ SCH (09:10)
[2017-04-30] MEDS: MIDODRINE 5 MG TAB PO SCH ×2 (09:17→16:37)
[2017-04-30] MEDS: ESOMEPRAZOLE 20 MG in SODIUM CHLORIDE 0.9% 50 ML IVPB SCH (09:18)
[2017-04-30] MEDS: CYANOCOBALAMIN 500 MCG TAB PO SCH (09:18)
--- NOTE | 2017-04-30 13:44 | P.PN ---
Subjective This is a 71-year-old male with past medical history significant for hep C and hepatocellular carcinoma who has been followed by Dr. Frias and Dr. Champion outpatient for his hepatocellular carcinoma. The patient was brought by family from home for worsening jaundice and increased lethargy and severe dehydration and decreased oral intake. The patient is a very poor historian, unable to provide information and seems be confused at this point and all of the history is brought from the record. 04/30: The patient was seen and evaluated today. He did undergo an ultrasound of the kidneys/renal and bladder yesterday, ultrasound did not show any hydronephrosis but did reveal moderate ascites. Chest x-ray showed congestive heart failure or volume overload, possible basilar pneumonia versus edema or atelectasis. Patient's creatinine was noted to be elevated at 5.2 nephrology was consulted, Kramer catheter was placed for accurate urine output and IV fluid bolus was given. Today the patient is waiting on comfort care/hospice to be discussed with the family. Objective - Vital Signs Vital signs: Vital Signs Temp 94.4 F L 04/30/17 07:00 Pulse 77 04/30/17 07:00 Resp 20 04/30/17 07:00 BP 77/49 04/30/17 07:00 Pulse Ox 96 04/30/17 07:00 Intake & Output 04/29/17 04/30/17 04/30/17 18:59 06:59 18:59 Intake Total 2100 Output Total 150 Balance 1950 Intake: Intake, IV Titration 2100 Amount Albumin Human 25% 50 ml 50 In Empty Bag 1 bag @ 100 mls/hr IVPB Q1H ANA Rx#: [id number] Esomeprazole 20 mg In 50 Sodium Chloride 0.9% 50 ml @ 100 mls/hr IVPB DAILY ANA Rx#:[id number] Sodium Chloride 0.9% 1, 1000 000 ml @ 110 mls/hr IV . Q9H6M ANA Rx#:[id number] Sodium Chloride 0.9% 1, 1000 000 ml @ 999 mls/hr IV . Q1H1M ONE Rx#:[id number] Output: Urine 150 Other: Voiding Method Indwelling Catheter Indwelling Catheter Indwelling Catheter # Voids 1 1 - Exam GENERAL: cachectic, confused NECK: Supple. No masses, no thyromegaly. LUNGS: Diminished bilaterally. HEART: Normal S1/S2. ABDOMEN: Steady. Positive for ascitic fluid wave. LOWER EXTREMITIES: Positive for 3+ bilateral lower extremity pitting edema. SKIN: Other for yellow skin and yellow sclera. - Labs CBC & Chem 7: 04/29/17 07:23 04/29/17 07:23 Labs: Abnormal Lab Results - Last 24 Hours (Table) 04/29/17 04/29/17 Range/Units 13:30 13:30 Urine Protein Trace H (Negative) Urine Blood Trace H (Negative) Urine Bilirubin 4+ H (Negative) Urine Bacteria Occasional H (None) /hpf Urine Mucus Rare H (None) /hpf Ur Random Sodium 18 L (30-90) mmol/L Assessment and Plan Plan: 1. Generalized weakness and lethargy with acute encephalopathy, likely metabolic in nature including acute kidney injury, severe protein calorie malnutrition and elevated ammonia level. 2. Acute kidney injury, likely multifactorial including hepatocellular disease , hepatorenal disease and intravascular depletion with severe protein calorie malnutrition. Nephrology on consult, fluid bolus given, Kramer catheter placed for accurate output 3. Elevated ammonia level. Right lactulose to maintain 2 or 3 bowel movements a day and monitor his mentation closely. 4. Elevated liver enzymes and bilirubin with history of hepatocellular carcinoma. Dr. Frias from hematology/oncology on consult, family and patient waiting on hospice consult today. 5. Questionable history of deep vein thrombosis versus pulmonary embolism. Continue with Lovenox. 6. Anxiety and depression continue to monitor mental status and monitor closely , medications on hold. 7. Chronic pain syndrome. Continued to monitor, continue with working, awaiting hospice consult. 8. Ascites with recurrent paracentesis. We'll continue to monitor 9. History of polysubstance abuse. We'll continue to monitor. 10. GI prophylaxis/DVT prophylaxis continue with Esomeprazole and Lovenox The above impression and plan of care have been discussed and directed by signing physician. Zulma Bauer nurse practitioner acting as scribe for signing physician.
[2017-04-30 14:51] VITALS: BP 76/44; PULSE 70; TEMP 93.9
[2017-05-01] MEDS ORDERED: ENOXAPARIN 60 MG/0.6 ML SYRINGE SQ SCH (09:00)
--- NOTE | 2017-05-03 15:59 | DS ---
ADMISSION DIAGNOSES: 1. Hepatocellular carcinoma, advanced stage. 2. Hepatitis C. 3. History of polysubstance abuse. 4. Acute kidney injury. 5. Severe protein calorie malnutrition. 6. Severe debility. DISCHARGE DIAGNOSES: 1. Hepatocellular carcinoma, advanced stage. 2. Hepatitis C. 3. History of polysubstance abuse. 4. Acute kidney injury. 5. Severe protein calorie malnutrition. 6. Severe debility. HOSPITAL COURSE: This is a 71 -year-old male with past medical history significant for hepatocellular carcinoma who presented to the hospital with worsening weakness, fatigue and dehydration. The patient was found to have acute kidney injury. Nephrology evaluated the patient and recommended against dialysis as the patient is a poor candidate with hypotension and poor candidate to be on dialysis. Dr. Frias from hematology/Oncology consulted who recommended against any medical intervention including blood work, EKG or further workup given the patients advanced hepatocellular disease and ( ) where the patients family met with hospice and determined to take the patient out of the hospital with hospice care. The patient was discharged in stable condition. CAROL
== END 2017-04-30 18:45 | disposition hospice, home (50) | DRG 441 ==
LOC: EC 13:16 → 4MS4W 16:09
PROVIDERS: ADMIT Internal Medicine; ATTEND Internal Medicine
DX: K72.00 Acute and subacute hepatic failure without coma (principal); E43 Unspecified severe protein-calorie malnutrition; G93.41 Metabolic encephalopathy; N17.9 Acute kidney failure, unspecified; R18.8 Other ascites; E87.2 Acidosis; C22.0 Liver cell carcinoma; I50.9 Heart failure, unspecified; Z51.5 Encounter for palliative care; K74.60 Unspecified cirrhosis of liver; E86.0 Dehydration; F32.9 Major depressive disorder, single episode, unspecified; F41.9 Anxiety disorder, unspecified; B19.20 Unspecified viral hepatitis C without hepatic coma; G89.4 Chronic pain syndrome; N40.0 Benign prostatic hyperplasia without lower urinary tract symptoms; J45.909 Unspecified asthma, uncomplicated; Z79.01 Long term (current) use of anticoagulants; Z79.899 Other long term (current) drug therapy; Z85.46 Personal history of malignant neoplasm of prostate; Z90.49 Acquired absence of other specified parts of digestive tract; Z90.79 Acquired absence of other genital organ(s); Z92.21 Personal history of antineoplastic chemotherapy; Z87.898 Personal history of other specified conditions; Z87.891 Personal history of nicotine dependence
CPT/HCPCS: 36415; 71020; 76770; 80053; 81001; 82140; 82550; 82553; 83735; 83880; 84100; 84300; 84443; 84484; 85025; 85610; 85730; 87324; 93005; 94760; 96360; 96361; 99285